=== PATIENT | female | born 1950 | race Caucasian/White ===

== ENCOUNTER 2019-08-25 10:40 | Outpatient (CLI) | payer MEDICARE, SELFPAY | END 2019-08-25 10:41 | disposition home or self-care (01) | PROVIDERS: PCP Family Medicine | DX: Z79.899 Other long term (current) drug therapy (principal) | CPT/HCPCS: 36415; 83036 ==

== ENCOUNTER 2020-05-05 09:51 | Outpatient (CLI) | payer MEDICARE, SELFPAY ==
[2020-05-05 10:13] LABS: Basophils Absolute Auto 0.1 K/mm3 (0.0-0.1); Basophils Percent Auto 1.1 % (0.2-1.2); Eosinophils Absolute Auto 0.4 K/mm3 (0-0.3); Eosinophils Percent Auto 8.4 % (0-4.4); Hematocrit 44.5 % (37.0-47.0); Hemoglobin 14.8 g/dL (12.0-15.0); Immature Granulocyte Absolute 0.02 K/mm3 (0.00-0.031); Immature Granulocyte Percent A 0.4 % (0-0.5); Lymphocytes Percent Auto 26.6 % (18.3-44.2); Mean Corpuscular HGB Conc 33.3 g/dl (32-36); Mean Corpuscular Hemoglobin 30.5 pg (26-34); Mean Corpuscular Volume 91.8 fl (80-100); Mean Platelet Volume 10.6 fl (7.4-10.4); Monocytes Absolute Auto 0.4 K/mm3 (0.1-0.6); Neutrophils Percent Auto 56.5 % (45.5-73.1); Platelet Count Result 291 k/mm3 (150-375); Red Blood Count 4.85 M/mm3 (4.2-5.4); Red Cell Distribution Width 13.3 % (11.5-14.5); White Blood Count 5.3 K/mm3 (4.5-10.0)
[2020-05-05 10:25] LABS: Hemoglobin A1C 5.6 % (<5.7)
[2020-05-05 10:27] LABS: Alanine Aminotransferase 26 U/L (4-35); Albumin Level 4.5 g/dL (3.5-5.1); Alkaline Phosphatase 65 U/L (38-126); Anion Gap 7 mmol/L (8-16); Aspartate Amino Transferase 33 U/L (14-36); Bilirubin,Total 0.6 mg/dL (0.2-1.3); Blood Urea Nitrogen 12 mg/dL (7-17); Calcium 9.3 mg/dL (8.4-10.2); Carbon Dioxide 31 mmol/L (22-30); Chloride 103 mmol/L (98-107); Estimated Glomerular Filt Rate > 60; Glucose 106 mg/dL (65-105); Potassium 4.6 mmol/L (3.4-5.0); Sodium 141 mmol/L (137-145)
[2020-05-05 11:00] LABS: Total Triiodothyronine (T3) 0.75 NG/ML (0.97-1.69)
[2020-05-05 11:13] LABS: Free T4 Free Thyroxine 0.67 ng/mL (0.78-2.19)
== END 2020-05-05 09:52 | disposition home or self-care (01) ==
LOC: ANHLAB 09:53
PROVIDERS: PCP Family Medicine; Visit Provider Physician Assistant
DX: E03.9 Hypothyroidism, unspecified (principal); F31.12 Bipolar disorder, current episode manic without psychotic features, moderate; R73.01 Impaired fasting glucose
CPT/HCPCS: 36415; 80053; 83036; 84439; 84443; 84480; 85025

== ENCOUNTER 2020-07-31 07:28 | Outpatient (CLI) | payer MEDICARE, SELFPAY ==
[2020-07-31 08:11] LABS: Anion Gap 4 mmol/L (8-16); Blood Urea Nitrogen 16 mg/dL (7-17); Calcium 8.6 mg/dL (8.4-10.2); Carbon Dioxide 33 mmol/L (22-30); Chloride 103 mmol/L (98-107); Estimated Glomerular Filt Rate > 60; Glucose 98 mg/dL (65-105); Potassium 4.2 mmol/L (3.4-5.0); Sodium 140 mmol/L (137-145)
[2020-07-31 10:52] LABS: Total Triiodothyronine (T3) 0.82 NG/ML (0.97-1.69)
== END 2020-07-31 07:29 | disposition home or self-care (01) ==
PROVIDERS: PCP Family Medicine; Visit Provider Physician Assistant
DX: E03.9 Hypothyroidism, unspecified (principal); F31.12 Bipolar disorder, current episode manic without psychotic features, moderate
CPT/HCPCS: 36415; 80048; 84439; 84443; 84480

== ENCOUNTER 2021-01-08 19:31 | Emergency (ER) | payer MEDICARE, SELFPAY ==
--- NOTE | ~2021-01-08 | XR_ITS ---
EXAMINATION: XR forearm RT 2V DATE: 01/08/2021 21:16 INDICATION: Right elbow swelling. Fall. TECHNIQUE: 2 views of right forearm were obtained. COMPARISON: None. FINDINGS: Bone alignment is normal. No fracture. The elbow joint space is normal. There is no elbow j oint effusion. IMPRESSION: 1. No fracture. Reviewed, dictated and finalized at location A. IMPRESSION: 1. No fracture.
--- NOTE | ~2021-01-08 | XR_ITS ---
EXAMINATION: XR shoulder RT min 2V DATE: 01/08/2021 20:11 INDICATION: Right clavicle injury. TECHNIQUE: 4 views of right clavicle were obtained. COMPARISON: None. FINDINGS: There is a comminuted fracture involving the middle third of right clavicle. The main dista l fracture fragment demonstrates 3 mm inferior displacement and one half shaft width anterior displac ement. Coracoclavicular interval is normal. There is mild osteoarthritis of the acromioclavicular charisma nt. The lungs demonstrate chronic interstitial lung disease. IMPRESSION: 1. Comminuted fracture involving the middle third of right clavicle. Reviewed, dictated and finalized at location A.
--- NOTE | ~2021-01-08 | CT_ITS ---
EXAMINATION: CT brain wo con DATE: 01/08/2021 21:23 INDICATION: Head injury. TECHNIQUE: Computed tomography (CT) of the head was performed without intravenous contrast. The mA wa s adjusted according to patient size. Iterative reconstruction technique was employed. The dose-lengt h product was 605.33 mGy-cm. COMPARISON: Head CT 08/21/2012, brain MRI 06/23/2016 FINDINGS: There are scattered areas of low attenuation in the cerebral white matter. There is no intr acranial hemorrhage, acute infarction, or abnormal intracranial mass lesion. The ventricles are dorita l in size. The orbits are normal. There is a right frontal lateral scalp hematoma. There is mild muco dereje thickening in the paranasal sinuses. There is a small left mastoid effusion. IMPRESSION: 1. Worsened mild nonspecific cerebral white matter disease, which likely represents chronic small ves eloy ischemic disease. Reviewed, dictated and finalized at location A. IMPRESSION: 1. Worsened mild nonspecific cerebral white matter disease, which likely repres ents chronic small vessel ischemic disease.
--- NOTE | ~2021-01-08 | CT_ITS ---
EXAMINATION: CT cervical spine wo con DATE: 01/08/2021 21:24 INDICATION: Head injury. TECHNIQUE: Computed tomography (CT) of the cervical spine was performed without intravenous contrast. Automated exposure control and iterative reconstruction technique were employed. The dose-length pro duct was 421.69 mGy-cm. COMPARISON: None FINDINGS: The visualized portions of the lung apices demonstrate chronic interstitial lung disease. P artially visualized is a comminuted fracture of right clavicle. The cervical spine demonstrates dorita l bone alignment. Vertebral body heights are normal. There is mildly decreased disc height at C3-C4 a nd C4-C5 and moderately decreased disc height at C5-C6 and C6-C7. The following disc levels are speci fically discussed: C2-C3: There is no uncovertebral joint osteoarthritis. There is mild bilateral facet joint osteoarthr itis. There is no neural foraminal stenosis. There is no central canal stenosis. C3-C4: There is mild right and severe left uncovertebral joint osteoarthritis. There is mild bilatera l facet joint osteoarthritis. There is mild left neural foraminal stenosis. There is mild central can al stenosis. C4-C5: There is mild right and moderate left uncovertebral joint osteoarthritis. There is mild bilate ral facet joint osteoarthritis. There is mild bilateral neural foraminal stenosis. There is mild cent ral canal stenosis. C5-C6: There is severe bilateral uncovertebral joint osteoarthritis. There is mild bilateral facet ginny int osteoarthritis. There is mild bilateral neural foraminal stenosis. There is mild central canal st enosis. C6-C7: There is mild right and severe left uncovertebral joint osteoarthritis. There is moderate righ t and mild left facet joint osteoarthritis. There is mild right and moderate left neural foraminal st enosis. There is mild central canal stenosis. C7-T1: There is no uncovertebral joint osteoarthritis. There is moderate right and severe left facet joint osteoarthritis. There is mild left neural foraminal stenosis. There is no central canal stenosi s. IMPRESSION: 1. Comminuted fracture of right clavicle. 2. Moderate cervical spondylosis. Reviewed, dictated and finalized at location A.
[2021-01-08 19:35] VITALS: BP 152/78; PULSE 57; RESP 20; TEMP 36.7; O2SAT 100
--- NOTE | 2021-01-08 19:45 | PC.NURSE ---
patient refused iv access
[2021-01-08] MEDS: ACETAMINOPHEN 500 MG TABLET 1000 MG PO (21:22)
--- NOTE | 2021-01-08 21:55 | ED.FALL ---
HPI - Fall General Chief Complaint: Fall Stated Complaint: glf on ground 1 hour, rt clavicle pain Time Seen by Provider: 01/08/21 19:52 Source: patient Mode of arrival: ambulatory Limitations: no limitations History of Present Illness HPI Narrative: Patient is a 70-year-old female who presents after fall. Patient complaining of right shoulder pain. Patient reports having multiple alcoholic beverages p.m. She denies hitting head. Patient denies neck pain. Patient reports tripping and falling on concrete patio while checking pool. Patient denies other complaints. Patient's daughter reports fall was unwitnessed. complaint: fall Related Data Home Medications Medication Instructions Recorded Confirmed aspirin 81 mg tablet,delayed 81 mg PO DAILY 06/21/19 08/08/20 release Allergies Allergy/AdvReac Type Severity Reaction Status Date / Time NKDA Allergy unknown Uncoded 08/08/20 07:56 Review of Systems Review of Systems: Narrative: CONSTITUTIONAL: Denies fever, chills, or sweats. EYES: Denies visual changes, redness, or discharge. ENT: Denies rhinorrhea, congestion, sore throat, or otalgia. CARDIOVASCULAR: Denies chest pain, palpitations, or edema. RESPIRATORY: Denies cough or dyspnea. GASTROINTESTINAL: Denies abdominal pain, nausea, vomiting, or diarrhea. GENITOURINARY: Denies dysuria or hematuria. SKIN: Denies rash or itching. MUSCULOSKELETAL: Reports right shoulder pain. NEUROLOGIC: Denies headache, numbness, dizziness, or weakness. PSYCHIATRIC: Denies anxiety or depression. [facility] Past Medical History Medical History Bipolar 1 disorder with moderate emma BRCA gene mutation positive Gastric polyps HH (hiatus hernia) Hypothyroidism (acquired) Reflux esophagitis Scleroderma of esophagus Surgical History Surgical History History of esophagogastroduodenoscopy (EGD) Social History Social History Social History: Smoking status: Never smoker Second hand tobacco smoke exposure: No Alcohol intake: current Drinks per week: 5 Substance use: never Substance use type: does not use Gender identity (if verbalized by the patient): Female Comments At the time of signature, I have reviewed and agree with nursing past medical, surgical, social, and family history unless otherwise noted. Please see nursing chart for further information. There is no relevant family history pertinent to the presenting complaint. Exam Narrative: Exam Narrative: GENERAL: Well-appearing, well-nourished, and in no acute distress. HEAD: Normocephalic, atraumatic. EYES: EOMI. No redness or drainage. Conjunctiva are normal. ENT: Mucous membranes pink and moist. NECK: AROM. Supple. No lymphadenopathy. CHEST: No respiratory distress. Clear to auscultation. HEART: Regular rate and rhythm. No murmur appreciated. Normal peripheral pulses. GI: Soft, nontender without rebound, or guarding. No distention. MUSCULOSKELETAL: No bony tenderness. EXTREMITIES: Tenderness with palpation to right shoulder, deformity noted SKIN: Edema and ecchymosis to right forearm NEURO: No focal deficits. Alert and oriented x3. Gait steady. PSYCH: Normal affect. No signs of depression or anxiety. Course Vital Signs Vital signs: Vital Signs Temperature 36.7 C 01/08/21 19:35 Pulse Rate 57 L 01/08/21 19:35 Respiratory Rate 20 01/08/21 19:35 Blood Pressure 152/78 H 01/08/21 19:35 Pulse Oximetry 100 01/08/21 19:35 Temperature 36.7 C 01/08/21 19:35 Pulse Rate 57 L 01/08/21 19:35 Respiratory Rate 20 01/08/21 19:35 Blood Pressure 152/78 H 01/08/21 19:35 Pulse Oximetry 100 01/08/21 19:35 Reviewed-patient is informed that they may have pre-hypertension or hypertension based on a blood pressure reading. I recommend the patient call the primar
[2021-01-08] MEDS: KETOROLAC 30 MG/ML VIAL (*BKC) IM (23:23)
[2021-01-08 23:30] VITALS: BP 122/68; PULSE 70; RESP 18; O2SAT 99
== END 2021-01-08 23:31 | disposition home or self-care (01) ==
PROVIDERS: Emergency Provider Nurse Practitioner; PCP Internal Medicine
DX: S42.021A Displaced fracture of shaft of right clavicle, initial encounter for closed fracture (principal); E03.9 Hypothyroidism, unspecified; K21.00 Gastro-esophageal reflux disease with esophagitis, without bleeding; M34.89 Other systemic sclerosis; F31.9 Bipolar disorder, unspecified; Z79.82 Long term (current) use of aspirin; M47.812 Spondylosis without myelopathy or radiculopathy, cervical region; R90.82 White matter disease, unspecified; W01.0XXA Fall on same level from slipping, tripping and stumbling without subsequent striking against object, initial encounter
CPT/HCPCS: 70450; 72125; 73030; 73090; 96372; 99284; A4565; A9270; J1885

== ENCOUNTER → 2022-04-29 09:48 | Outpatient (CLI) | payer MEDICARE, SELFPAY ==
--- NOTE | ~2022-04-29 | DEXA_ITS ---
Bone Density Report Name: FRANKIE TYLER Age: 72 Sex: Female Ethnicity: White Date of : 1950 Indication: postmenopausal; screening for osteoporosis; history of glucocorticoids; Referring Provider: RuthAaliyah Study: Bone densitometry was performed. Exam Date: April 29, 2022 Accession number: [id number] Bone Density: Region BMD T-score Z-score Classification AP Spine (L1-L4) 0.860 -1.7 0.5 Osteopenia Femoral Neck (Left) 0.614 -2.1 -0.3 Osteopenia Total Hip (Left) 0.779 -1.3 0.2 Osteopenia Femoral Neck (Right) 0.630 -2.0 -0.1 Osteopenia Total Hip (Right) 0.728 -1.8 -0.2 Osteopenia Total Hip Mean 0.754 -1.6 0.0 Osteopenia World Health Organization criteria for BMD impression classify patients as: Normal (T-score at or above -1.0), Osteopenia (T-score between -1.0 and -2.5), or Osteoporosis (T-score at or below -2.5). 10-year Fracture Risk(1): Major Osteoporotic Fracture 19% Hip Fracture 4.5% Reported Risk Factors: [place] (), Neck BMD=0.614, BMI=28.0, glucocorticoids (1) FRAX(R) Version 3.08. Fracture probability calculated for an untreated patient. Fracture probability may be lower if the patient has received treatment. Clinical Information Provided by Patient: Has taken Glucocorticoids Has used the following medications: Vitamin D Patient maximum height was 63.75 Menopause Age: 50 Drinks caffeinated beverages Onset of menses at age 14 Number of children 2 Impression: The patient has low bone mass, based on the Left Femoral Neck T-score. The patient has an estimated ten-year risk of hip fracture of 4.5% and an estimated ten-year risk of major fracture of 19%, based on the WHO FRAX algorithm. The patient has risk factors, including: history of glucocorticoid therapy. Discussion: BONE DENSITY IS LOW AT ONE OR MORE SKELETAL SITES. THE PATIENT'S BMD AND CLINICAL RISK FACTORS CONTRIBUTE TO THIS PATIENT'S INCREASED RISK OF FRACTURE. This patient's lowest T-score is low at one or more skeletal sites. It meets the World Health Organization's (WHO) criteria for ?low bone mass? (T-score between -1.0 and -2.5). The patient's 10-year risk of hip fracture as calculated by FRAX exceeds the threshold where pharmacological therapy is recommended by the National Osteoporosis Foundation (NOF). However, all treatment decisions require clinical judgment and consideration of individual patient factors, including patient preferences, comorbidities, previous drug use, risk factors not captured in the FRAX model (e.g., frailty, falls, vitamin D deficiency, increased bone turnover, interval significant decline in bone density) and possible under or overestimation of fracture risk by FRAX. The patient should follow a healthful lifestyle (good nutrition with adequate calcium and vitamin D, and appr
== END ==
PROVIDERS: PCP Internal Medicine; Visit Provider Internal Medicine
DX: Z78.0 Asymptomatic menopausal state (principal); M85.89 Other specified disorders of bone density and structure, multiple sites
CPT/HCPCS: 77080

== ENCOUNTER 2024-08-28 10:01 | Emergency (ER) | payer MEDICARE, SELFPAY ==
[2024-08-28] VITALS (11 sets, daily range): BP systolic 101–132; BP diastolic 55–78; PULSE 64–77; RESP 16; TEMP 36.4–36.9; O2SAT 94–100
--- NOTE | ~2024-08-28 | CT_ITS ---
EXAMINATION: CT cervical spine wo con DATE: 08/28/2024 10:40 INDICATION: Head injury. Fall. TECHNIQUE: Computed tomography (CT) of the cervical spine was performed without intravenous contrast. Automated exposure control and iterative reconstruction technique were employed. The dose-length pro duct was 178.31 mGy-cm. COMPARISON: CT cervical spine 01/08/2021 FINDINGS: There is 7 degrees dextrocurvature of cervicothoracic spine. Vertebral body heights are nor mal. There is moderately decreased disc height at C3-C4 and C4-C5 and severely decreased disc height at C5-C6 and C6-C7. The following disc levels are specifically discussed: C2-C3: There is no uncovertebral joint osteoarthritis. There is mild right and moderate left facet ginny int osteoarthritis. There is no neural foraminal stenosis. There is no central canal stenosis. C3-C4: There is mild right and severe left uncovertebral joint osteoarthritis. There is moderate righ t and severe left facet joint osteoarthritis. There is mild left neural foraminal stenosis. There is mild central canal stenosis. C4-C5: There is mild right and severe left uncovertebral joint osteoarthritis. There is mild bilatera l facet joint osteoarthritis. There is mild left neural foraminal stenosis. There is mild central can al stenosis. C5-C6: There is severe bilateral uncovertebral joint osteoarthritis. There is mild bilateral facet ginny int osteoarthritis. There is mild bilateral neural foraminal stenosis. There is mild central canal st enosis. C6-C7: There is mild right and severe left uncovertebral joint osteoarthritis. There is mild bilatera l facet joint osteoarthritis. There is mild left neural foraminal stenosis. There is mild central can al stenosis. C7-T1: There is no uncovertebral joint osteoarthritis. There is severe bilateral facet joint osteoart hritis. There is mild left neural foraminal stenosis. There is no central canal stenosis. IMPRESSION: 1. No fracture. 2. Severe cervical spondylosis. Reviewed, dictated and finalized at location A. SIZER
--- NOTE | ~2024-08-28 | CT_ITS ---
EXAMINATION: CT brain wo con DATE: 08/28/2024 10:40 INDICATION: Head injury. Fall. TECHNIQUE: Computed tomography (CT) of the head was performed without intravenous contrast. The mA wa s adjusted according to patient size. Iterative reconstruction technique was employed. The dose-lengt h product was 605.33 mGy-cm. COMPARISON: Head CT 01/08/2021 FINDINGS: There are scattered areas of low attenuation in the cerebral white matter. There is no intr acranial hemorrhage, acute infarction, or abnormal intracranial mass lesion. The ventricles are dorita l in size. The orbits are normal. There is mucosal thickening in the paranasal sinuses. There are sma ll bilateral mastoid effusions. There is posterior scalp soft tissue swelling. IMPRESSION: 1. Moderate nonspecific cerebral white matter disease, which likely represents chronic small vessel i schemic disease. Reviewed, dictated and finalized at location A. ULA MIXER IMPRESSION: 1. Moderate nonspecific cerebral white matter disease, which likely represents chronic small vessel ischemic disease.
--- OUTSIDE RECORDS SUMMARY | 2024-08-28 10:02 | XMS_ITS | Clinical Summary ---
Author Organization [facility] al Address [address] [place] [address] Care Team Providers Care Power Plant Engineer Name Role Phone Aaliyah Miranda MD Unavailable Aaliyah Miranda MD Primary Care Provider [phone] Allergies No known active allergies Medications buPROPion XL (WELLBUTRIN XL) 150 mg 24 hr tablet Take 1 tablet (150 mg total) by mouth special education classroom aide before breakfast 1 Active atorvastatin (LIPITOR) 20 mg tablet 1 Active cyanocobalamin (Vitamin B-12) 1,000 mcg tablet Take 1 tablet (1,000 mcg total) by mouth daily 1 Active cholecalciferol (VITAMIN D-3) 5,000 unit capsule Take 5,000 mg by mouth daily 1 Active metFORMIN (GLUCOPHAGE) 500 mg tablet 2 Active escitalopram (LEXAPRO) 20 mg tablet Take 1 tablet (20 mg total) by mouth daily 2 Active levothyroxine (SYNTHROID) 50 mcg tablet 2 Active calcium carbonate (OS-DIDI) 1,500 mg (600 mg elemental) tablet Take 1 tablet (1,500 mg total) by mouth daily 2 Active omeprazole (PriLOSEC) 40 mg capsule TAKE 1 CAPSULE(40 MG) BY MOUTH TWICE DAILY BEFORE BREAKFAST AND DINNER 180 capsule 2 3 Active oxyBUTYnin XL (DITROPAN-XL) 5 mg 24 hr tablet Take 1 tablet (5 mg total) by mouth daily 4 Active folic acid (FOLVITE) 1 mg tablet 4 Active Active Problems Problem Noted Date Diagnosed Date Complete uterovaginal prolapse 08/12/2024 Stress incontinence, female 08/12/2024 History of colon polyps 05/27/2022 Overview (05/27/2022): Added automatically from request for surgery [id number] Alcohol dependence in remission ([facility]) 2021 Encounter for screening colonoscopy 08/14/2021 Overview (08/14/2021): Added automatically from request for surgery [id number] Prediabetes 08/03/2021 JOHN (generalized anxiety disorder) 06/04/2021 Moderate episode of recurrent major depressive d isorder 06/04/2021 Acquired hypothyroidism 09/20/2020 Chronic low back pain with sciatica 09/20/2020 Mixed stress and urge urinary incontinence 09/20 Osteoarthritis of both knees 09/20/2020 Gastroesophageal reflux disease with esophagitis 12/29/2018 Esophageal dysphagia 12/29/2018 Fundic gland polyposis of stomach 12/29/2018 Fundic gland polyps of stomach, benign 9 Overview (12/29/2018): Added automatically from request for surgery [id number] BRCA2 gene mutation positive 10/23/2018 Knee pain 10/16/2017 At risk for breast cancer 06/30/2017 Atherosclerosis of coronary artery 04/26/2017 Paroxysmal atrial fibrillation (CMS/HCC) 017 Dyspnea on exertion 12/28/2016 Gene mutation 04/13/2015 Telangiectasia 02/17/2014 Interstitial lung disease (CMS/HCC) 10/27/2013 Carotid bruit 05/18/2013 Palpitations 05/18/2013 Mixed hyperlipidemia 06/21/2011 Pulmonary hypertension 06/10/2011 Systemic sclerosis 11/17/2010 Encounters Date Type Department Care Team Description 08/20/2024 3:34 PM ELECTRIC TRUCKER - 08/20/2024 11:59 PM ELECTRIC TRUCKER Hospital Encounter [address] [address] Discharge Disposition: Discharge to home or self care 08/20/2024 1:15 PM ELECTRIC TRUCKER Office Visit [facility] [address] [place] [address] Jah Noguera MD Uterine prolapse (Primary Dx); Pre-op exam 08/20/2024 12:45 PM ELECTRIC TRUCKER Ancillary Procedure [facility] [address] [place] [address] Preop examination 07/08/2024 Orders Only [facility] [address], [place] [address] Jah Noguera MD Preop examination (Primary Dx) 07/08/2024 Telephone [facility] [address] [place] [address] Danielle Fulton, junior high school principal Alexander 09/07/24 12pm RLSH/BSO 07/06/2024 Telephone [facility] [address] [place] [address] Karen Ríos Surgery Alexander from Last 3 Months Immunizations Name Administration Dates Next Due Influenza, Quadrivalent, Spl it, Intramuscular 06/17/2016,06/29/2015 Influenza, Trivalent, High D ose, Split, Preservative Free, Intramuscular 05/29/2018,04/25/2017 Influenza, Trivalent, IM (MDV) 04/29/2014 Influenza, Unspecified 04/24/2021,03/30/2020,03/2018 Pneumococcal Polysaccharide PPV23 03/30/2020 Tdap 01/24/2014 Surgical History Surgery Date Site/Laterality Comments OVARIAN CYSTECTOMY Ovarian Cystectomy - Dermoid (Added by TW Conv) UPPER GASTROINTESTINAL ENDOSCOPY Medical History Medical History Date Comments Anxiety disorder Anxiety - (Adde d by TW Conv) Personal history of other me ntal and behavioral disorders History of depression - (Add ed by TW Conv) Personal history of other di seases of the circulatory system History of atrial fibrillati on - (Added by TW Conv) Personal history of other me ntal and behavioral disorders History of mental disorder - (Added by TW Conv) Personal history of other di seases of the digestive system History of gastric ulcer - ( Added by TW Conv) Personal history of other di seases of the digestive system History of gastroesophageal reflux (GERD) - (Added by TW Conv) Personal history of other en docrine, nutritional and metabolic disease History of underacti ve thyroid - (Added by TW Conv) Personal history of other di seases of the musculoskeletal system and connective tissue History of arthritis - (Adde d by TW Conv) GERD (gastroesophageal reflux disease) Colon polyp Dysphagia Atrial fibrillation (CMS/HCC) (HCC) Hyperlipidemia Scleroderma involving lung ( CMS/HCC) (HCC) Hypothyroidism Prediabetes Depression Ovarian cyst BRCA2 gene mutation positive Family History Medical History Relation Name Comments Diabetes Brother Family history of diabetes mellitus - (Added by TW Conv) Other Father Family history of sepsis - (Added by TW Conv) Colon cancer Father's Sister 1 Malignant Neoplasm, Colon - (Added by TW Conv) Lupus Father's Sister 2 Hypertension Mother Hypertension - (Added by TW Conv)/Family history of hypertension - (Added by TW Conv) Lung cancer Mother Malignant Lung Neoplasm - (Added by TW Conv)/Family history of lung cancer - (Added by TW Conv) Skin cancer Mother Skin Cancer - ( Added by TW Conv) Diabetes Other 1 Diabetes Mellit - (Added by TW Conv) Heart disease Other 2 Heart Disease - (Added by TW Conv) Colon cancer Other 3 Malignant Neopl asm, Colon - (Added by TW Conv) Endometrial cancer Other 4 Endometri al cancer - Niece, BRCA2 mutation (Added by TW Conv) Kidney cancer Other 5 Family history of malignant neoplasm of kidney - Niece, BRCA2 mutation (Added by TW Conv) Hypertension Sister 1 Family history of hypertension - (Added by TW Conv) Heart attack Sister 2 Family history of myocardial infarction - (Added by TW Conv) Diabetes Sister 3 Family history of diabetes mellitus - (Added by TW Conv) Relation Name Status Comments Brother Father Father's Sister 1 Father's Sister 2 Mother Other 1 Other 2 Other 3 Other 4 Other 5 Sister 1 Sister 2 Sister 3 Social History Tobacco Use Types Packs/Day Years Used Date Smoking Tobacco: Never Smokeless Tobacco: Never Tobacco Cessation:Counseling Given: Not Answered AUDIT-C Answer Date Recorded Q1: How often do you have a drink containing alc ohol? Monthly or less 08/20/2024 Q2: How many drinks containi ng alcohol do you have on a typical day when you are drinking? 1 or 2 08/20/2024 Q3: How often do you have si x or more drinks on one occasion? Never 08/20/2024 Personal Safety Answer Date Recorded Have you ever been in or are you currently in a harmful physical or emotional relationship or is someone making you feel afraid or unsafe? Denies 01/29/2024 Comments No Sex and Gender Information Value Date Recorded Sex Assigned at Not on file Legal Sex Female 7:32 PM ELECTRIC TRUCKER Gender Identity Not on file Sexual Orientation Not on file Obstetrics History Para Term AB IAB SAB Ectopic Multiple Livin g Live Births 2 2 2 2 2 Date Outcome GA Total Labor Labor/2nd/3rd Weight Sex Type Anes PTL Becky A1 A5 Name Clin 1970 Term M Vaginal Livin g Casa 1975 Term F Vaginal Livin g Ira Last Filed Vital Signs Vital Sign Reading Time Taken Comments Blood Pressure 113/76 05/16/2024 12:32 PM CDT Pulse 77 05/16/2024 12:32 PM CDT Temperature 36.9 C (98.5 F) 05/16/2024 12:32 PM CDT Respiratory Rate 20 05/16/2024 12:32 PM CDT Oxygen Saturation 99% 05/16/2024 12:32 PM CDT Inhaled Oxygen Concentration - - Weight 63.5 kg (140 lb) 08/20/2024 1:09 PM ELECTRIC TRUCKER Height 162.6 cm (5' 4 ) 08/20/2024 1:09 PM ELECTRIC TRUCKER Body Mass Index 24.03 08/20/2024 1:09 PM ELECTRIC TRUCKER Plan of Treatment Upcoming Encounters Date Type Department Care Team (Latest Contact Info) Description 09/07/2024 12:00 PM ELECTRIC TRUCKER Hospital Encounter [facility] Operating Room [address] [place] [id number] [place] [address] [place] [address] 09/07/2024 12:00 PM ELECTRIC TRUCKER - 09/07/2024 3:30 PM ELECTRIC TRUCKER Surgery [facility] Operating Room [address] [place] [id number] [place] [address] [place] [address] Hysterectomy with Poornima Robotic Assisted Sacralcolpopexy, Urethral Sling Insertion Scheduled Procedures Name Priority Associated Diagnoses Date/Ti me XI SACRALCOLPOPEXY - ROBOTIC ASSISTED Complete uterovaginal prolapse Stress incontinence, female 09/07/2024 12:00 PM ELECTRIC TRUCKER SUPRACERVICAL HYSTERECTOMY - ROBOTIC ASSISTED Complete uterovaginal prolapse Stress incontinence, female 09/07/2024 12:00 PM ELECTRIC TRUCKER Health Maintenance Due Date Last Done Comments Depression Screening 1950 Hepatitis C Screening 1950 Hepatitis B Screening 1969 Zoster Vaccine (1 of 2) 2001 Well Visit 65+ 02/04/2016 DTaP/Tdap/Td Vaccine (2 - Td or Tdap) 01/25/2024 01/24/2014 Covid-19 Vaccine (4 - 2023-2 5 season) 2024 11/08/2021, 06/08/2021, 09/01/2020 Osteoporosis Screening-Bone Density Scan 04/29/2024 04/29/2022 Fall Risk Assessment 01/28/2025 01/29/2024 Breast Cancer Screening-Mammogram 02/19/2025 02/20/2024, 06/08/2021, 02/02/2019, Additional history exists Colon Cancer Screening-Colonoscopy 01/10/2033 01/10/2023, 01/17/2014 Pneumococcal vaccine 65+ Completed 04/17/2022, 03/21 Colon Cancer Screening-CT Colonography Discontinued 01/10/2023, 01/17/2014 Colon Cancer Screening-DNA Stool Discontinued 01/11/20, 01/17/2014 Colon Cancer Screening-FIT Discontinued 01/10/2023, Colon Cancer Screening-Sigmoidoscopy Discontinued 01/10/2023, 01/17/2014 Influenza Vaccine Completed 05/12/2024, , 03/30/2020, Additional history exists Procedures Procedure Name Priority Date/Time Associated Diagnosis Comments SURGICAL PATHOLOGY Routine 08/20/2024 1: 49 PM ELECTRIC TRUCKER CO ENDOMETRIAL BX W/WO ENDOCERVIX BX W/O DILAT SPX Routine 08/20/2024 1:15 PM ELECTRIC TRUCKER Uterine prolapse US PELVIS COMPLETE Routine 08/20/2024 11 :56 AM ELECTRIC TRUCKER Preop examination SCREENING MAMMOGRAM BILATERAL W TYRELL Schedule Routine, Read Routine (OP Routine) 02/20/2024 11:02 AM CDT BRCA2 gene mutation positive Encounter for screening mammogram for malignant neoplasm of breast COLONOSCOPY 01/10/2023 3:46 PM CDT from Last 3 Months or Most Recently Relevant to Health Maintenance Results * Surgical pathology (08/20/2024 1:49 PM ELECTRIC TRUCKER) Endometrial biopsy 1:49 PM ELECTRIC TRUCKER 08/20/2024 4:02 PM ELECTRIC TRUCKER Narrative 08/23/2024 9:31 AM ELECTRIC TRUCKER [address] [address] Tele: Sumaya Schneider MD - Senior Sustainability Advisor Note to Patients: This report may contain a detailed description of human tissue sent by a health care provider to the laboratory for pathologic evaluation. The content of this report is essential for diagnosis and may provide important critical findings. This information may be unfamiliar to patients to review without a medical professional present. It is advised that the patient review this report in the presence of a health care provider who can answer questions and explain the details. SURGICAL PATHOLOGY REPORT Patient Name: BRIANNA TYLER Address: [address] [place], [place] [id number] Gender: F : 1950 (Age: 74) Service: Location: , [facility] #: [id number] Patient Type: [facility] SPECIMEN Taken: 08/20/2024 Received 08/20/2024 Reported: 08/23/2024 Physician(s): Jah Noguera M.D. DIAGNOSIS: Uterus, endometrium, biopsy: - Scant strips of inactive endometrium with ciliated metaplasia [facility]/08/23/2024 09:31 Examining Pathologist: Linnette Quiñones M.D. Report Reviewed and Electronically Signed By Linnette Quiñones M.D. SPECIMEN TYPE: A: EMBX CLINICAL IMPRESSION AND HISTORY: Uterine prolapse. Preoperative exam GROSS DESCRIPTION: Received in formalin in a single container with the patient's name, BRIANNA TYLER labeled EMB X and contains less than 1 cc of clear mucoid material. Due to the color and size of the specimen, eosin is used. The specimen is filtered and submitted entirely in cassette A1. [facility] MICROSCOPIC DESCRIPTION: Microscopic examination supports the above captioned diagnosis. There is no hyperplasia or malignancy. Clerical Data Follows A; [id number] REPORT IMAGES AND/OR SCANNED DOCUMENTS ONLY VIEWABLE IN PDF FORMAT The immunohistochemical test(s) cited in this report, if any, was developed and its performance characteristics determined by [facility] Pathology Department. It has not been cleared or approved by the U.S. Food and Drug Administration. The FDA has determined that such clearance or approval is not necessary. This test is used for clinical purposes. It should not be regarded as investigational or for research. [facility] is certified under the Clinical Laboratory Improvement Amendments of 1988 (CLIA) as qualified to perform high complexity testing. Immunostains were performed on formalin-fixed paraffin embedded tissue using a polymer diaminobenzidine chromogen detection system. Antibodies used may include clone SP1 (rabbit monoclonal, estrogen receptor), clone 1E2 (rabbit monoclonal progesterone receptor), Ki-67 (rabbit monoclonal, 30-9), CD117 (rabbit polyclonal, c-kit), and anti-Her-2/anahi (4B5) (rabbit monoclonal primary antibody). In the event that immunohistochemistry or special stains have been performed, attending physician has confirmed appropriateness of controls. Frozen section, operating room consultation, gross examination and dissection, and case sign out may have been performed in part or completely in the following laboratories: [facility], [facility], [place], [place] [address] [place] [address]. Jah Noguera MD LAB PATHOLOGY ORDERABLES Final Result * CO ENDOMETRIAL BX W/WO ENDOCERVIX BX W/O DILAT SPX (08/20/2024 1:15 PM ELECTRIC TRUCKER) Narrative Jah Noguera MD - 08/20/2024 1:15 PM ELECTRIC TRUCKER aJh Noguera MD 08/20/2024 1:59 PM Endometrial Biopsy Only Performed by: Jah Noguera MD Authorized by: Jah Noguera MD Consent Given by: Patient Timeout: prior to procedure the correct patient, procedure, and site was verified Verbal consent obtained: Yes Risks, alternatives, and patient questions discussed: Yes Preparation: Patient was prepped using a clean technique Procedure: Procedure: endometrial biopsy with Pipelle A bivalve speculum was placed in the vagina: yes Cervix cleaned and prepped: yes Specimen collected: specimen collected and sent to pathology Patient tolerance: Patient tolerated the procedure well with no immediate complications Findings: Cervix: normal Jah Noguera MD IN CLINIC/BEDSIDE ORDERAB LES Final Result * US Pelvis Complete (08/20/2024 11:56 AM ELECTRIC TRUCKER) Endometrial Thickness 1.4 mm&millime ters VIEWPOINT Anatomical Region Laterality Modality Pelvis N/A Ultrasound 08/20/2024 12:0 1 PM ELECTRIC TRUCKER Impressions 08/20/2024 3:44 PM ELECTRIC TRUCKER Anteverted uterus, volume = 52.3 cm ; EM thickness = 1.4 mm Postmenopausal ovaries appear normal x 2 No free fluid Narrative Procedure Note Jah Noguera MD - 08/20/2024 IMPRESSION: Anteverted uterus, volume = 52.3 cm ; EM thickness = 1.4 mm Postmenopausal ovaries appear normal x 2 No free fluid Jah Noguera MD IMG US PROCEDURES Final R esult * Screening Mammogram Bilateral W Tyrell (02/20/2024 11:02 AM CDT) Anatomical Region Laterality Modality Breast Bilateral Mammography Narrative 02/20/2024 1:06 PM CDT Mammogram Technique: Bilateral Digital Breast Tomosynthesis, Bilateral C-view 2D Screening mammogram. Views obtained: bilateral craniocaudal and bilateral mediolateral oblique. Computer Aided Detection was performed. Mammogram Findings: The present examination has been compared to prior imaging studies performed at [facility] on 02/02/2019, 06/08/2021 and 12/20/2021. The breasts are almost entirely fatty. There is no suspicious abnormality in either breast. Impression: There is no mammographic evidence of malignancy. Annual screening mammography is recommended. OVERALL FINAL ASSESSMENT: BI-RADS CATEGORY 1: Negative. Procedure Note Monica Cosme MD - 02/20/2024 Mammogram Technique: Bilateral Digital Breast Tomosynthesis, Bilateral C-view 2D Screening mammogram. Views obtained: bilateral craniocaudal and bilateral mediolateral oblique. Computer Aided Detection was performed. Mammogram Findings: The present examination has been compared to prior imaging studies performed at [facility] on 02/02/2019, 06/08/2021 and 12/20/2021. The breasts are almost entirely fatty. There is no suspicious abnormality in either breast. Impression: There is no mammographic evidence of malignancy. Annual screening mammography is recommended. OVERALL FINAL ASSESSMENT: BI-RADS CATEGORY 1: Negative. Cynthia Guevara NP IMG MAMMO PROCEDURES Final Result * COLONOSCOPY (01/10/2023 3:46 PM CDT) Anatomical Region Laterality Modality Other Narrative Procedure Note Chito Hampton MD - 01/10/2023 3:46 PM CDT [facility] Patient Name: Brianna Tyler Procedure Date: 01/10/2023 3:46 PM Date of : 1950 Admit Type: Outpatient Age: 72 Gender: Female Attending MD: Chito Hampton M.D. Room: [facility] ENDOSCOPY ROOM 9 Note Status: Finalized Procedure: Colonoscopy Indications: Surveillance: Personal history of adenomatouspolyps on last colonoscopy > 5 years ago Referring MD: Aaliyah Miranda M.D. Providers: Chito Hampton M.D. Medicines: Monitored Anesthesia Care Complications: No immediate complications. Estimated blood loss:None. Estimated Blood Loss: Estimated blood loss: none. Procedure: Pre-Anesthesia Assessment: - The risks and benefits of the procedure and the sedation options and risks were discussed with the patient. All questions were answered and informed consent was obtained. - Immediately prior to administration ofmedications, the patient was re-assessed for adequacy to receive sedatives. - The anesthesia plan was to use monitoredanesthesia care (MAC). The benefits, risks and alternatives of theprocedure and sedation were discussed and informed consentwas obtained. All questions were answered. Please referto the signed informed consent document in the medical record. The scope was passed under direct vision.The [facility] [id number] endoscope was introducedthrough the anus and advanced to the cecum, identified by appendiceal orifice and ileocecal valve. The colonoscopy was performed without difficulty. The patient tolerated the procedure well. The qualityof the bowel preparation was evaluated using the BBPS ([place] Bowel Preparation Scale) with scores of:Right Colon = 2 (minor amount of residual staining, small fragments of stool and/or opaque liquid, but mucosa seen well), Transverse Colon = 2 (minor amount of residual staining, small fragments of stool and/or opaque liquid, but mucosa seen well) and Left Colon= 3 (entire mucosa seen well with no residualstaining, small fragments of stool or opaque liquid). Thetotal BBPS score equals 7. The quality of the bowel preparation was good. The bowel preparation usedwas GoLYTELY via extended prep with split dose instruction. The quality of the bowel preparationwas good. Findings: The perianal and digital rectal examinations were normal. The colon (entire examined portion) appeared normal. A few small-mouthed diverticula were found in the sigmoid colon. Internal hemorrhoids were found during retroflexion. The hemorrhoids were mild. Impression: - The entire examined colon is normal. - Diverticulosis in the sigmoid colon. - Internal hemorrhoids. - No specimens collected. Recommendation: - Observe patient's clinical course followingtoday's Colonoscopy. - Repeat colonoscopy in 5-7 years. - Resume home medications and diet. - Return to primary care physician as previously scheduled. - In the unusual situation that you developabdominal pain, bleeding or other significant problems in the days following this procedure please call my officeat [phone] to speak to my nurses. After hours and evenings please call [phone] andspeak to the GI fellow personal computer specialist. Please tell them that Dr. Hampton did your procedure and that your wereinstructed to have the fellow call me or the physiciancovering for me to discuss the management of your condition.If you have an urgent problem, [facility] and have the ER doctor call miguel ángel during the day or the GI Fellow after hours and weekends to arrange admission or transfer to our facility. Attending Participation: I personally performed the entire procedure. Electronically Signed By: Chito Hampton M.D. Chito Hampton M.D. 01/10/2023 4:21:48 PM . Number of Addenda: 0 Note Initiated On: 01/10/2023 3:46 PM Recognized by the [employer] for promoting quality in endoscopy Chito Hampton MD ENDOSCOPY PROCEDURES Final Result from Last 3 Months or Most Recently Relevant to Health Maintenance Insurance MEDICARE [facility] MEDICARE [facility] MEDICARE [facility] MEDICARE Advance Directives For more information, please contact: [phone] * Full Code (Latest Code Status on File) Date Activated Date Inactivated Comments 01/29/2024 10:18 AM 01/29/2024 4:06 PM * Full Code Date Activated Date Inactivated Comments 01/10/2023 1:28 PM 01/10/2023 9:19 PM * Full Code Date Activated Date Inactivated Comments 10/18/2021 1:40 PM 10/18/2021 8:00 PM * Full Code Date Activated Date Inactivated Comments 06/25/2021 7:35 AM 06/25/2021 1:10 PM Care Teams Power Plant Engineer Relationship Specialty Start Date End Date Aaliyah Miranda MD [address] [place] [address] PCP - General Internal Medicine 04/24/22 Aaliyah Miradna MD [address] [place] [address] Internal Medicine 04/22/22
--- OUTSIDE RECORDS SUMMARY | 2024-08-28 10:02 | XMS_ITS | Referral Summary ---
Author Organization [facility] Address [address] [place] [address] Care Team Providers Care Weather Algorithm Scientist Name Role Phone Brooklynn Lira MD Primary Care Provider + Source Comments [facility],non-owned Affiliates and Associated Physician Practices is amultiple site organization consisting of ambulatory clinics and hospital sitesin [place], [place], [place] and [place]. This disclosure is being madepursuant to the Care Everywhere program and may not contain all information available regarding this patient. Last updated 18.[facility] Allergies No known active allergies Medications * Be aware that medications may not be up to date on this document. Alwaysverify current medications with the patient. Medication Sig Dispensed Refills Start Date End Date Status OMEPRAZOLE PO Active LEVOTHYROXINE SODIUM PO Active Escitalopram Oxalate (LEXAPRO PO) Active methylPREDNISolone (MEDROL DOSEPAK) 4 MG tablet Take by mouth as directed Use dose pack of 4mg tabs, start 24 mg/day, taper by 4mg/day over 6 days per pkg instructions. Take with food. 1 Each 11/07/2018 Active Social History Tobacco Use Types Packs/Day Years Used Date Smoking Tobacco: Never Smokeless Tobacco: Never Sex and Gender Information Value Date Recorded Sex Assigned at Not on file Gender Identity Not on file Sexual Orientation Not on file Last Filed Vital Signs Vital Sign Reading Time Taken Comments Blood Pressure 130/80 11/07/2018 3:59 PM CDT Pulse 88 11/07/2018 3:59 PM CDT Temperature 36.9 C (98.4 F) 11/07/2018 3:59 PM CDT Respiratory Rate 16 11/07/2018 3:59 PM CDT Oxygen Saturation 97% 11/07/2018 3:59 PM CDT Inhaled Oxygen Concentration - - Weight 70.3 kg (155 lb) 11/07/2018 3:59 PM CDT Height 162.6 cm (5' 4 ) 11/07/2018 3:59 PM CDT Body Mass Index 26.61 11/07/2018 3:59 PM CDT Plan of Treatment Not on file Care Teams Weather Algorithm Scientist Relationship Specialty Start Date End Date Brooklynn Lira MD [address] [place] [address] PCP - General Family Medicine 11/07/18
--- OUTSIDE RECORDS SUMMARY | 2024-08-28 10:02 | XMS_ITS | Referral Summary ---
Author Organization [facility] Address [address] [place] [address] Care Team Providers Care Bank Officer Name Role Phone Aaliyah Miranda MD Unavailable Aaliyah Miranda MD Primary Care Provider [phone] Encounters Date Type Department Care Team Description 08/20/2024 3:34 PM SACK LIFTER - 08/20/2024 11:59 PM SACK LIFTER Hospital Encounter [id number] [place] [address] Discharge Disposition: Discharge to home or self care 08/20/2024 1:15 PM SACK LIFTER Office Visit [facility] Office [facility] [address] [place] [address] Jah Noguera MD Uterine prolapse (Primary Dx); Pre-op exam 08/20/2024 12:45 PM SACK LIFTER Ancillary Procedure [facility] [address] [facility] Office [address] [address] Preop examination 07/08/2024 Orders Only [facility] [address] [facility] Office [facility] [address] [address] Jah Noguera MD Preop examination (Primary Dx) 07/08/2024 Telephone [facility] [address] [facility] Office [facility] [address] [address] Danielle Fulton RN Surgery Alexander 09/07/24 12pm RLS/BSO 07/06/2024 Telephone [facility] [address] [facility] Medical Office Building [address] [place] [address] Karen Ríos Surgery Alexander from Last 3 Months Allergies No known active allergies Medications buPROPion XL (WELLBUTRIN XL) 150 mg 24 hr tablet Take 1 tablet (150 mg total) by mouth striker off before breakfast 1 Active atorvastatin (LIPITOR) 20 [...] (05/27/2022): Added automatically from request for surgery [id number] Alcohol dependence in remission (CMS/HCC) 2021 Encounter for screening colonoscopy 08/14/2021 Overview (08/14/2021): Added automatically from request for surgery [id number] Prediabetes 08/03/2021 JOHN (generalized anxiety disorder) 06/04/2021 [...] (12/29/2018): Added automatically from request for surgery [id number] BRCA2 gene mutation positive 10/23/2018 Knee pain 10/16/2017 At risk for breast cancer 06/30/2017 Atherosclerosis of coronary artery 04/26/2017 Paroxysmal atrial fibrillation (CMS/HCC) 017 Dyspnea on exertion 12/28/2016 Gene mutation 04/13/2015 Telangiectasia 02/17/2014 Interstitial lung disease (CMS/HCC) 10/27/2013 Carotid bruit 05/18/2013 Palpitations 05/18/2013 Mixed hyperlipidemia 06/21/2011 Pulmonary hypertension 06/10/2011 Systemic sclerosis 11/17/2010 Immunizations Name Administration Dates Next Due Influenza, Quadrivalent, Spl it, Intramuscular 06/17/2016,06/29/2015 Influenza, Trivalent, High D ose, Split, Preservative Free, Intramuscular 05/29/2018,04/25/2017 Influenza, Trivalent, IM (MDV) 04/29/2014 Influenza, Unspecified 04/24/2021,03/30/2020,03/2018 Pneumococcal Polysaccharide PPV23 03/30/2020 Tdap 01/24/2014 Social History Tobacco Use Types Packs/Day Years [...] on file Legal Sex Female 7:32 PM SACK LIFTER Gender Identity Not on file Sexual Orientation [...] 63.5 kg (140 lb) 08/20/2024 1:09 PM SACK LIFTER Height 162.6 cm (5' 4 ) 08/20/2024 1:09 PM SACK LIFTER Body Mass Index 24.03 08/20/2024 1:09 PM SACK LIFTER Plan of Treatment Upcoming Encounters Date Type Department Care Team (Latest Contact Info) Description 09/07/2024 12:00 PM SACK LIFTER Hospital Encounter [facility] Operating Room [address] [place] [address] [place] [address] [place] [phone] 09/07/2024 12:00 PM SACK LIFTER - 09/07/2024 3:30 PM SACK LIFTER Surgery [facility] Operating Room [address] [place] [address] [place] [address] [place] [phone] Hysterectomy with Poornima Robotic Assisted Sacralcolpopexy, Urethral Sling Insertion Scheduled Procedures Name Priority Associated Diagnoses Date/Ti me XI SACRALCOLPOPEXY - ROBOTIC ASSISTED Complete uterovaginal prolapse Stress incontinence, female 09/07/2024 12:00 PM SACK LIFTER SUPRACERVICAL HYSTERECTOMY - ROBOTIC ASSISTED Complete uterovaginal prolapse Stress incontinence, female 09/07/2024 12:00 PM SACK LIFTER Procedures Procedure Name Priority Date/Time Associated Diagnosis Comments SURGICAL PATHOLOGY Routine 08/20/2024 1: 49 PM SACK LIFTER MI ENDOMETRIAL BX W/WO ENDOCERVIX BX W/O DILAT SPX Routine 08/20/2024 1:15 PM SACK LIFTER Uterine prolapse US PELVIS COMPLETE Routine 08/20/2024 11 :56 AM SACK LIFTER Preop examination SCREENING MAMMOGRAM BILATERAL W TYRELL Schedule Routine, Read Routine (OP Routine) 02/20/2024 11:02 AM CDT BRCA2 gene mutation positive Encounter for screening mammogram for malignant neoplasm of breast COLONOSCOPY 01/10/2023 3:46 PM CDT from Last 3 Months or Most Recently Relevant to Health Maintenance Results * Surgical pathology (08/20/2024 1:49 PM SACK LIFTER) Endometrial biopsy 1:49 PM SACK LIFTER 08/20/2024 4:02 PM SACK LIFTER Narrative 08/23/2024 9:31 AM SACK LIFTER [address] [address] Tele: Sumaya Schneider MD - Target Setter Note to Patients: This report may contain [...] PATHOLOGY REPORT Patient Name: BRIANNA TYLER Address: [address] [place], [place] [id number] Gender: F : 1950 (Age: 74) Service: Location: , Hospital #: [id number] Patient Type: MBC SPECIMEN Taken: 08/20/2024 Received 08/20/2024 Reported: 08/23/2024 Physician(s): Jah Noguera M.D. DIAGNOSIS: Uterus, endometrium, biopsy: - Scant strips of inactive endometrium with ciliated metaplasia b/08/23/2024 09:31 Examining Pathologist: Linnette Quiñones M.D. Report [...] filtered and submitted entirely in cassette A1. JAP,CU MICROSCOPIC DESCRIPTION: Microscopic examination supports the above captioned diagnosis. There is no hyperplasia or malignancy. Clerical Data Follows A; [id number] REPORT IMAGES AND/OR SCANNED DOCUMENTS ONLY VIEWABLE IN PDF FORMAT The immunohistochemical test(s) cited in this report, if any, was developed and its performance characteristics determined by [facility] Pathology Department. It has not been cleared or approved by the U.S. Food and Drug Administration. The FDA has determined that such clearance or approval is not necessary. This test is used for clinical purposes. It should not be regarded as investigational or for research. [facility] Laboratory is certified under the Clinical [...] part or completely in the following laboratories: [facility], [address] [facility], [place], [place] [address] [place] [address], [address] [place] [address]. us Jah Noguera MD LAB PATHOLOGY ORDERABLES Final Result * MI ENDOMETRIAL BX W/WO ENDOCERVIX BX W/O DILAT SPX (08/20/2024 1:15 PM SACK LIFTER) Narrative Jah Noguera MD - 08/20/2024 1:15 PM SACK LIFTER Jah Noguera MD 08/20/2024 1:59 PM Endometrial Biopsy [...] * US Pelvis Complete (08/20/2024 11:56 AM SACK LIFTER) Endometrial Thickness 1.4 mm&millime ters VIEWPOINT Anatomical Region Laterality Modality Pelvis N/A Ultrasound 08/20/2024 12:0 1 PM SACK LIFTER Impressions 08/20/2024 3:44 PM SACK LIFTER Anteverted uterus, volume = 52.3 cm ; [...] compared to prior imaging studies performed at [facility] on 02/02/2019, 06/08/2021 and 12/20/2021. The [...] compared to prior imaging studies performed at [facility] on 02/02/2019, 06/08/2021 and 12/20/2021. The breasts are almost entirely fatty. There is no suspicious abnormality in either breast. Impression: There is no mammographic evidence of malignancy. Annual screening mammography is recommended. OVERALL FINAL ASSESSMENT: BI-RADS CATEGORY 1: Negative. us Cynthia Guevara NP IMG MAMMO PROCEDURES Final Result * COLONOSCOPY (01/10/2023 3:46 PM CDT) Anatomical Region Laterality Modality Other Narrative Procedure Note Chito Hampton MD - 01/10/2023 3:46 PM CDT GI ENDOSCOPY [facility] Patient Name: Brianna Tyler Procedure Date: 01/10/2023 3:46 PM Date of : 1950 Admit Type: Outpatient Age: 72 Gender: Female Attending MD: Chito Hampton M.D. Room: [facility] ENDOSCOPY ROOM 9 Note Status: Finalized Procedure: [...] The scope was passed under direct vision.The PCF [id number] endoscope was introducedthrough the anus and advanced to the cecum, identified by appendiceal orifice and ileocecal valve. The colonoscopy was performed without difficulty. The patient tolerated the procedure well. The qualityof the bowel preparation was evaluated using the BBPS (Mcallen Bowel Preparation Scale) with scores of:Right Colon [...] following this procedure please call my officeat [phone] to speak to my nurses. After hours and evenings please call [phone] andspeak to the GI fellow parts sales counterperson. Please tell them that Dr. Hampton did your procedure and that your wereinstructed to have the fellow call me or the physiciancovering for me to discuss the management of your condition.If you have an urgent problem, please go to [facility] emergency room and have the ER doctor call miguel ángel during the day or the GI Fellow after hours and weekends to arrange admission or transfer to our facility. Attending Participation: I personally performed the entire procedure. Electronically Signed By: Chito Hampton M.D. Chito Hampton M.D. 01/10/2023 4:21:48 PM . Number of Addenda: 0 Note Initiated On: 01/10/2023 3:46 PM Recognized by the [employer] for promoting quality in endoscopy Chito Hampton MD ENDOSCOPY PROCEDURES Final Result from Last 3 Months or Most Recently Relevant to Health Maintenance Insurance MEDICARE [facility] MEDICARE [facility] MEDICARE [facility] MEDICARE Advance Directives For more information, please contact: [phone] * Full Code (Latest Code Status on File) Date Activated Date Inactivated Comments 01/29/2024 10:18 AM 01/29/2024 4:06 PM * Full Code Date Activated Date Inactivated Comments 01/10/2023 1:28 PM 01/10/2023 9:19 PM * Full Code Date Activated Date Inactivated Comments 10/18/2021 1:40 PM 10/18/2021 8:00 PM * Full Code Date Activated Date Inactivated Comments 06/25/2021 7:35 AM 06/25/2021 1:10 PM Care Teams Bank Officer Relationship Specialty Start Date End Date Aaliyah Miranda MD [address] [place] [address] PCP - General Internal Medicine 04/24/22 Aaliyah Miranda MD [address] [place] [address] Internal Medicine 04/22/22
--- OUTSIDE RECORDS SUMMARY | 2024-08-28 10:02 | XMS_ITS | Patient Health Summary ---
Author Organization [facility] Address [address] [facility] [place] [address] Care Team Providers Care Manager Water Name Role Phone Brooklynn Lira MD Primary Care Provider + Note from [facility],non-owned Affiliates and Associated Physician Practices is amultiple site organization consisting of ambulatory clinics and hospital sitesin [place], [place], [place]. This disclosure is being madepursuant to the Care Everywhere program and may not contain all information available regarding this patient. Last updated 18.[facility] Allergies No known active allergies Medications * Be aware that medications may not be up to date on this document. Alwaysverify current medications with the patient. * OMEPRAZOLE PO * LEVOTHYROXINE SODIUM PO * Escitalopram Oxalate (LEXAPRO PO) * methylPREDNISolone (MEDROL DOSEPAK) 4 MG tablet(Started 11/07/2018) Take by mouth as directed Use dose pack of 4mg tabs, start 24 mg/day, taper by 4mg/day over 6 days per pkg instructions. Take with food. Social History Tobacco Use Types Packs/Day Years [...] Mass Index 26.61 11/07/2018 3:59 PM CDT Care Teams Manager Water Relationship Specialty Start Date End Date Brooklynn Lira MD [address] [facility] [address] [place] [address] PCP - General Family Medicine 11/07/18
--- OUTSIDE RECORDS SUMMARY | 2024-08-28 10:02 | XMS_ITS | Encounter Summary ---
Author Organization [facility] Address [address] [place] [address] Phone Care Team Providers Care Fiberglass Pipe Covering Supervisor Name Role Phone Aaliyah Miranda MD Unavailable Aaliyah Miranda MD Primary Care Provider [phone] Encounter Details Date Type Department Care Team (Late st Contact Info) Description 06/18/2022 Telephone [facility] Surgery [facility] 5th [place] [address] [place] [address] Jessica Escobar Social History Tobacco Use Types Packs/Day Years Used Date Smoking Tobacco: Never Smokeless Tobacco: Never AUDIT-C Answer Date Recorded Q1: How often do you have a drink containing alc ohol? Monthly or less 06/25/2021 Average Number of Drinks Not on file 021 Q3: How often do you have si x or more drinks on one occasion? Less than monthly 06/25/2021 Comments No Sex and Gender Information Value Date Recorded Sex Assigned at Not on file Legal Sex Female 7:32 PM UNEMPLOYMENT EXAMINER Gender Identity Not on file Sexual Orientation Not on file documented as of this encounter Plan of Treatment Upcoming Encounters Date Type Department Care Team (Latest Contact Info) Description 09/07/2024 12:00 PM UNEMPLOYMENT EXAMINER Hospital Encounter [facility] Operating Room [address] [place] [phone] [place] [address] [place] [address] 09/07/2024 12:00 PM UNEMPLOYMENT EXAMINER - 09/07/2024 3:30 PM UNEMPLOYMENT EXAMINER Surgery [facility] Operating Room [address] [place] [address] [place] [address] [place] [address] Hysterectomy with Poornima Robotic Assisted Sacralcolpopexy, Urethral Sling Insertion Scheduled Procedures Name Priority Associated Diagnoses Date/Ti me XI SACRALCOLPOPEXY - ROBOTIC ASSISTED Complete uterovaginal prolapse Stress incontinence, female 09/07/2024 12:00 PM UNEMPLOYMENT EXAMINER SUPRACERVICAL HYSTERECTOMY - ROBOTIC ASSISTED Complete uterovaginal prolapse Stress incontinence, female 09/07/2024 12:00 PM UNEMPLOYMENT EXAMINER documented as of this encounter Visit Diagnoses Not on filedocumented in this encounter Care Teams Fiberglass Pipe Covering Supervisor Relationship Specialty Start Date End Date Aaliyah Miranda MD [address] [place] [address] PCP - General Internal Medicine 04/24/22 Aaliyah Miranda MD [address] [place] [address] Internal Medicine 04/22/22 documented as of this encounter
--- OUTSIDE RECORDS SUMMARY | 2024-08-28 10:02 | XMS_ITS | Clinical Summary ---
Author Organization [facility] [employer] Address [address] [facility] [place] [address] Care Team Providers Care Power Crane Operator Name Role Phone Brooklynn Lira MD Primary Care Provider + Source Comments [facility] [employer],non-owned Affiliates and Associated Physician Practices is amultiple site organization consisting of ambulatory clinics and hospital sitesin [place], [place], [place] and [place]. This disclosure is being madepursuant to the Care Everywhere program and may not contain all information available regarding this patient. Last updated 18.[facility] [employer] Allergies No known active allergies Medications * [...] 11/07/2018 3:59 PM CDT Plan of Treatment Health Maintenance Due Date Last Done Comments BONE DENSITY TESTING 1950 COLOGUARD (AGES 45-75) - COL ON CA SCREENING 1950 COLON MONITORING 1950 COLONOSCOPY - COLON CA SCREENING 1950 CT COLONOGRAPHY - COLON CA SCREENING 1950 Colorectal Cancer Screening 1950 FIT - COLON CA SCREENING 1950 FLEX SIG - COLON CA SCREENING 1950 LIPID TESTING 1950 MAMMOGRAM 1950 MEDICARE AWV 12 MONTHS 1950 HEPATITIS C SCREENING 01/29/1969 DTAP/TDAP/TD VACCINES (1 - Tdap) 1970 PNEUMOCOCCAL VACCINE 50+ (1 of 1 - PCV) 2001 ZOSTER VACCINE (1 of 2) 2001 SCREENING FOR DIABETES 11/07/2018 COVID-19 VACCINE ( - 2023-2 5 season) 2024 INFLUENZA VACCINE (#1) 2024 DEPRESSION SCREENING 07/21/2024 Respiratory Syncytial Virus (RSV) Vaccine Pt: or over 60 yrs (1 - 1-dose 75+ series) 2026 HEPATITIS B VACCINE Aged Out No longe r eligible based on patient's age to complete this topic HIB VACCINE Aged Out No longer eligi ble based on patient's age to complete this topic HPV VACCINE Aged Out No longer eligi ble based on patient's age to complete this topic MENINGOCOCCAL (Group B) VACCINE Aged Out No longer eligible based on patient's age to complete this topic MENINGOCOCCAL VACCINE Aged Out No inder [place] eligible based on patient's age to complete this topic Care Teams Power Crane Operator Relationship Specialty Start Date End Date Brooklynn Lira MD [address] [place] [address] PCP - General Family Medicine 11/07/18
--- OUTSIDE RECORDS SUMMARY | 2024-08-28 10:03 | XMS_ITS | Encounter Summary ---
Author Organization [facility] Address [address] [place] [address] Phone Care Team Providers Care Horticulture Superintendent Name Role Phone Peter Calderon MD Primary Care Provider [phone] Brooklynn Lira MD Primary Care Provider Aaliyah Miranda MD Unavailable Aaliyah Miranda MD Primary Care Provider [phone] Encounter Details Date Type Department Care Team (Late st Contact Info) Description 01/09/2017 Orders Only [facility] ProviderPadmini MD [address] [place] [address] Social History Tobacco Use Types Packs/Day Years Used Date Smoking Tobacco: Never Assessed Comments Unknown Sex and Gender Information Value Date Recorded Sex Assigned at Not on file Legal Sex Female 7:32 PM BLASTING COAL MINER Gender Identity Not on file Sexual Orientation Not on file documented as of this encounter Plan of Treatment Upcoming Encounters Date Type Department Care Team (Latest Contact Info) Description 09/07/2024 12:00 PM BLASTING COAL MINER Hospital Encounter [facility] Operating Room [address] [place] [phone] [place] [address] [place] [address] 09/07/2024 12:00 PM BLASTING COAL MINER - 09/07/2024 3:30 PM BLASTING COAL MINER Surgery [facility] Operating Room [address] [place] [phone] [place] [address] [place] [address] Hysterectomy with Poornima Robotic Assisted Sacralcolpopexy, Urethral Sling Insertion Scheduled Procedures Name Priority Associated Diagnoses Date/Ti me XI SACRALCOLPOPEXY - ROBOTIC ASSISTED Complete uterovaginal prolapse Stress incontinence, female 09/07/2024 12:00 PM BLASTING COAL MINER SUPRACERVICAL HYSTERECTOMY - ROBOTIC ASSISTED Complete uterovaginal prolapse Stress incontinence, female 09/07/2024 12:00 PM BLASTING COAL MINER documented as of this encounter Procedures Procedure Name Priority Date/Time Associated Diagnosis Comments VLWU CAROTID DUPLEX SCAN COMPLETE BILATERAL 01/09/2017 12:00 AM CDT documented in this encounter Results * VLWU CAROTID DUPLEX SCAN COMPLETE BILATERAL (01/09/2017 12:00 AM CDT) Anatomical Region Laterality Modality Vascular Bilateral Ultrasound Narrative 01/09/2017 12:00 AM CDT Ordered by an unspecified provider. Historical Provider CV VASCULAR PROCEDURES Fi nal Result documented in this encounter Visit Diagnoses Not on filedocumented in this encounter Care Teams Horticulture Superintendent Relationship Specialty Start Date End Date Peter Calderon MD [address] [place] [address] PCP - General 01/09/17 12/28/18 Brooklynn Lira MD [address] [facility] [address] [place] [address] PCP - General Family Medicine 12/29/18 04/23/22 Aaliyah Miranda MD [address] [place] [address] PCP - General Internal Medicine 04/24/22 Aaliyah Miranda MD [address] [place] [address] Internal Medicine 04/22/22 documented as of this encounter
--- OUTSIDE RECORDS SUMMARY | 2024-08-28 10:03 | XMS_ITS | Clinical Summary ---
Author Organization [facility] Address [address] [place] [address] Care Team Providers Care Assistant County Attorney Name Role Phone Aaliyah Miranda MD Primary Care Provider [phone] Allergies No known active allergies Medications Cholecalciferol (VITAMIN D) 125 MCG (5000 UT) CapIndications:Vi tamin D deficiency Take 5,000 mg by mouth daily. 30 capsule 021 Active Senna 8.6 MG tabletIndications :Other constipation Take 1 tablet (8.6 mg total) by mouth as needed for Constipation. 30 tablet 1 022 Active Additional Information Patient not taking.Reported on 05/14/2024 calcium, elemental, 600 MG tabletIndications :Osteopenia of multiple sites Take 1 tablet (600 mg total) by mouth daily. 90 tablet 3 022 Active metFORMIN (GLUCOPHAGE) 500 MG tabletIndications :Prediabetes Take 1 tablet (500 mg total) by mouth daily with breakfast. 120 tablet 2 024 Active levothyroxine (SYNTHROID) 50 MCG tabletIndications :Acquired hypothyroidism Take 1 tablet (50 mcg total) by mouth daily. 90 tablet 1 024 Active atorvastatin (LIPITOR) 20 MG tabletIndications :Mixed hyperlipidemia Take 1 tablet (20 mg total) by mouth nightly at bedtime. 90 tablet 1 024 Active vitamin B-12 (CYANOCOBALAMIN) (CYANOCOBALAMIN) 1000 mcg tabletIndications :Vitamin B12 deficiency Take one tablet every other day. 90 tablet 3 024 Active escitalopram (LEXAPRO) 20 MG tabletIndications :Moderate episode of recurrent major depressive disorder ([facility]),JOHN (generalized anxiety disorder) Take 1 tablet (20 mg total) by mouth daily. 90 tablet 1 024 Active buPROPion XL (WELLBUTRIN XL) 300 MG 24 hr tabletIndications :Moderate episode of recurrent major depressive disorder ([facility]) Take 1 tablet (300 mg total) by mouth every morning. 90 tablet 1 024 Active thiamine 100 MG TabIndications:Al cohol abuse Take 1 tablet (100 mg total) by mouth daily. 100 tablet 3 024 Active folic acid (FOLVITE) 1 MG tabletIndications :Alcohol abuse Take 1 tablet (1 mg total) by mouth daily. 90 tablet 3 024 Active naltrexone (DEPADE) 50 MG tabletIndications :Alcohol abuse Take 1 tablet (50 mg total) by mouth daily. 90 tablet 3 024 Active ARIPiprazole (ABILIFY) 2 MG tabletIndications :Bipolar disorder with depression ([facility]) TAKE 1 TABLET(2 MG) BY MOUTH DAILY 90 tablet 024 Active oxybutynin XL (DITROPAN-XL) 10 MG 24 hr tabletIndications :Urine, incontinence, stress female TAKE 1 TABLET(10 MG) BY MOUTH DAILY 90 tablet 024 Active omeprazole (PRILOSEC) 40 MG capsuleIndication s:Gastroesophagea l reflux disease without esophagitis TAKE 1 CAPSULE(40 MG) BY MOUTH DAILY 90 capsule 025 Active omeprazole (PRILOSEC) 40 MG capsuleIndication s:Gastroesophagea l reflux disease without esophagitis Take 1 capsule (40 mg total) by mouth daily. 90 capsule 1 024 2024 Discontinued Active Problems Problem Noted Date Diagnosed Date Bipolar disorder with depression ([facility]) 02/02/2024 Alcohol dependence in remission ([facility] ) 10/02/2021 Prediabetes 08/03/2021 Systemic sclerosis, unspecified ([facility] ) 07/25/2021 JOHN (generalized anxiety disorder) 06/04/2021 Moderate episode of recurren t major depressive disorder ([facility]) 06/04/2021 Closed displaced fracture of right clavicle 12/20 Mixed hyperlipidemia 09/21/2020 Osteoarthritis of both knees 09/20/2020 Acquired hypothyroidism 09/20/2020 Chronic low back pain with sciatica 09/20/2020 Gastroesophageal reflux disease without esophagi tis 09/20/2020 Mixed stress and urge urinary incontinence 09/20 BRCA2 gene mutation positive 10/23/2018 Resolved Problems Problem Noted Date Diagnosed Date Resolved Date Elevated blood pressure reading 09/20/2020 01/09/2021 Esophageal dysphagia 12/29/2018 021 Fundic gland polyposis of stomach 12/29/2018 09/20/2020 Fundic gland polyps of stomach, benign 12/29/2018 09/20/2020 Overview (09/20/2020): Added automatically from request for surgery [id number] Gastroesophageal reflux dise ase with esophagitis 12/29/2018 09/20/2020 Encounters Date Type Department Care Team Description 08/05/[address] [facility] - [address] [place] [address] Aaliyah Miranda MD Follow Up Call 07/02/2024 Scan Sulmaq INFO SRVCS Scanned, Doc [facility] from Last 3 Months Immunizations Name Administration Dates Next Due Arexvy Respiratory Syncytial Virus (RSV, adjuvanted) 0.5 mL, PF 05/01/2023 FLUAD (IIV, Trivalent, 0.5 M L Pre-filled Syringe) 05/12/2024 Fluzone High Dose (IIV, triv alent, 0.5mL) 05/29/2018 Fluzone High Dose - >Age 65 (Prefilled Syringe) 05/01/2023,04/08/2022,04/24/2021,2017 Influenza (Generic) 06/17/2016,06/29/2015,2013 Influenza Adult (Generic) 03/30/2020,03/2018,06/17/2016,2014,04/29/2014 MODERNA COVID-19 (12+) MRNA, LNP-S, PF, 100 MCG/ 0.5 ML DOSE 09/01/2020 MODERNA COVID-19 (SALES INCENTIVE ANALYST MAE XAVIER), MRNA, LNP-S, PF, 50 MCG/ 0.25 ML DOSE 11/08/2021,06/08/2021 Pneumococcal (Pneumovax 23) 03/30/2020 Pneumococcal (Prevnar 13) 04/17/2022 Tdap (Generic) 01/24/2014 Family History Medical History Relation Comments Diabetes Brother Other aneurysm Father Rheumatoid Arthritis Father Hypertension Mother Lung Cancer Mother lung Diabetes Sister Relation Status Comments Brother Alive Father Mother Sister Alive Social History Tobacco Use Types Packs/Day Years Used Date Smoking Tobacco: Never Smokeless Tobacco: Never Tobacco Cessation:Counseling Given: Yes Comments:counseled by Dr Miranda Alcohol Use Standard Drinks/Week Comments Yes 1.7 (1 standard drink = 0.6 oz p ure alcohol) counseled by Dr Miranda PHQ-2 Answer Date Recorded Patient Health Questionnaire-2 Score 5 03/31/2024 Comments No Sex and Gender Information Value Date Recorded Sex Assigned at Not on file Legal Sex Female 8:34 AM REIMBURSEMENT COUNSELOR Gender Identity Not on file Sexual Orientation Not on file Last Filed Vital Signs Vital Sign Reading Time Taken Comments Blood Pressure 116/76 05/14/2024 1:03 PM CDT Pulse 64 05/14/2024 1:03 PM CDT Temperature 36.2 C (97.1 F) 05/14/2024 1:03 PM CDT Respiratory Rate 18 05/14/2024 1:03 PM CDT Oxygen Saturation 96% 05/14/2024 1:03 PM CDT Inhaled Oxygen Concentration - - Weight 67 kg (147 lb 9.6 oz) 05/14/2024 1:03 PM CDT Height 162.6 cm (5' 4 ) 05/14/2024 1:03 PM CDT Body Mass Index 25.34 05/14/2024 1:03 PM CDT Plan of Treatment Health Maintenance Due Date Last Done Comments Zoster Vaccines (1 of 2) 2001 DTaP, Tdap and Td Vaccines (2 - Td or Tdap) 01/25/2024 01/24/2014 PHQ-2 (Physician [facility]) 07/21/2024 03/31/2024 Annual Medicare Wellness Visit 05/21/2025 Postponed from 02/04/2016 (No Insurance Coverage) Mammogram Screening 02/19/2026 02/20/2024, 02/20/2024, 12/20/2021, Additional history exists Colorectal Cancer Screening Colonoscopy (10 Years) 01/10/2033 01/10/2023, 01/10/2023 Hepatitis C Completed 09/20/2020 Pneumococcal Vaccine: 65+ Years Completed 04/17/2022, 03/30/2020 Dexa Scan (General) Completed 04/29/2022, RSV Immunization or 60+ Years Completed 05/01/2023 COVID-19 Vaccine Completed 05/12/2024, 06/2023, 04/08/2022, Additional history exists Influenza Adult Completed 05/12/2024, 04/20, 04/08/2022, Additional history exists Meningococcal B Vaccine Aged Out No l onger eligible based on patient's age to complete this topic Meningococcal Vaccine Aged Out No inder madison eligible based on patient's age to complete this topic RSV Immunizations Under 20 Months Aged Out No longer eligible based on patient's age to complete this topic Procedures Procedure Name Priority Date/Time Associated Diagnosis Comments MAMMOGRAM GENERIC (SCAN ORDER) 02/20/2024 COLONOSCOPY GENERIC (SCAN ORDER) 01/10/2023 BONE DENSITY GENERIC (SCAN ORDER) 04/29/2022 HEPATITIS C ANTIBODY Routine 09/20/2020 6:28 PM REIMBURSEMENT COUNSELOR Routine general medical examination at a health care facility from Last 3 Months or Most Recently Relevant to Health Maintenance Results * MAMMOGRAM GENERIC (SCAN ORDER) (02/20/2024) Anatomical Region Laterality Modality Other 02/20/2024 [facility] Scanned SCANNING Final Resu lt * COLONOSCOPY GENERIC (01/10/2023) 01/10/2023 us [facility] Scanned SCANNING Final Resu lt * BONE DENSITY GENERIC (04/29/2022) Anatomical Region Laterality Modality Other 04/29/2022 Narrative 04/29/2022 Ordered by an unspecified provider. us Documents Scanned SCANNING Final Result * HEPATITIS C ANTIBODY (09/20/2020 6:28 PM REIMBURSEMENT COUNSELOR) HEPATITIS C AB NON-REACTI VE NON-REACT MARYANN 09/20/2020 9:36 PM REIMBURSEMENT COUNSELOR [facility] Comment: ANTIBODIES TO HCV NOT DETECTED. DOES NOT EXCLUDE THE POSSIBILITY OF EXPOSURE TO HCV. 09/20/2020 6:28 PM REIMBURSEMENT COUNSELOR Aaliyah Miranda MD LABORATORY Final Result [facility] [address] [place] [address], [id number] from Last 3 Months or Most Recently Relevant to Health Maintenance Insurance MEDICARE [facility] Care Teams Assistant County Attorney Relationship Specialty Start Date End Date Aaliyah Miranda MD [address] [place] [address] PCP - General INTERNAL MEDICINE 09/15/20
--- OUTSIDE RECORDS SUMMARY | 2024-08-28 10:03 | XMS_ITS | Encounter Summary ---
Author Organization [facility] Address [address] [place] [address] Phone Care Team Providers Care Double Needle Operator Lockstitch Name Role Phone Peter Calderon MD Primary Care Provider [phone] Brooklynn Lira MD Primary Care Provider Aaliyah Miranda MD Unavailable Aaliyah Miranda MD Primary Care Provider [phone] Encounter Details Date Type Department Care Team (Latest Contact Info) Description 01/21/2017 Orders Only [facility] CONVERSION Scanning, Provider Social History Tobacco Use Types Packs/Day Years Used Date Smoking Tobacco: Never Assessed Comments Unknown Sex and Gender Information Value Date Recorded Sex Assigned at Not on file Legal Sex Female 7:32 PM MOUNTER Gender Identity Not on file Sexual Orientation Not on file documented as of this encounter Plan of Treatment Upcoming Encounters Date Type Department Care Team (Latest Contact Info) Description 09/07/2024 12:00 PM MOUNTER Hospital Encounter [facility] Operating Room [address] [place] [phone] [place] [address] [place] [address] 09/07/2024 12:00 PM MOUNTER - 09/07/2024 3:30 PM MOUNTER Surgery [facility] Operating Room [address] [place] [phone] [place] [address] [place] [address] Hysterectomy with Poornima Robotic Assisted Sacralcolpopexy, Urethral Sling Insertion Scheduled Procedures Name Priority Associated Diagnoses Date/Ti me XI SACRALCOLPOPEXY - ROBOTIC ASSISTED Complete uterovaginal prolapse Stress incontinence, female 09/07/2024 12:00 PM MOUNTER SUPRACERVICAL HYSTERECTOMY - ROBOTIC ASSISTED Complete uterovaginal prolapse Stress incontinence, female 09/07/2024 12:00 PM MOUNTER documented as of this encounter Procedures Procedure Name Priority Date/Time Associated Diagnosis Comments STRESS TEST ONLY, EXERCISE 01/21/2017 7:02 PM CDT documented in this encounter Results * STRESS TEST ONLY, EXERCISE (01/21/2017 7:02 PM CDT) Anatomical Region Laterality Modality Other us Provider Scanning CV STRESS PROCEDURES Final Res ult documented in this encounter Visit Diagnoses Not on filedocumented in this encounter Care Teams Double Needle Operator Lockstitch Relationship Specialty Start Date End Date Peter Calderon MD [address] [place] [address] PCP - General 01/09/17 12/28/18 Brooklynn Lira MD [address] [facility] [address] [place] [address] PCP - General Family Medicine 12/29/18 04/23/22 Aaliyah Miranda MD [address] [place] [address] PCP - General Internal Medicine 04/24/22 Aaliyah Miranda MD [address] [place] [address] Internal Medicine 04/22/22 documented as of this encounter
--- OUTSIDE RECORDS SUMMARY | 2024-08-28 10:03 | XMS_ITS | Encounter Summary ---
Author Organization [facility] Address [address] [place] [address] Phone Care Team Providers Care Wood Machinist Apprentice Name Role Phone Peter Calderon MD Primary Care Provider [phone] Brooklynn Lira MD Primary Care Provider Aaliyah Miranda MD Unavailable Aaliyah Miranda MD Primary Care Provider [phone] Encounter Details Date Type Department Care Team (Latest Contact Info) Description 06/24/2017 Orders Only [facility] CONVERSION Scanning, Provider Social History Tobacco Use Types Packs/Day Years Used Date Smoking Tobacco: Never Assessed Comments Unknown Sex and Gender Information Value Date Recorded Sex Assigned at Not on file Legal Sex Female 7:32 PM DISTRIBUTION LINEMAN Gender Identity Not on file Sexual Orientation Not on file documented as of this encounter Plan of Treatment Upcoming Encounters Date Type Department Care Team (Latest Contact Info) Description 09/07/2024 12:00 PM DISTRIBUTION LINEMAN Hospital Encounter [facility] Operating Room [address] [place] [phone] [place] [address] [place] [address] 09/07/2024 12:00 PM DISTRIBUTION LINEMAN - 09/07/2024 3:30 PM DISTRIBUTION LINEMAN Surgery [facility] Operating Room [address] [place] [phone] [place] [address] [place] [address] Hysterectomy with Poornima Robotic Assisted Sacralcolpopexy, Urethral Sling Insertion Scheduled Procedures Name Priority Associated Diagnoses Date/Ti me XI SACRALCOLPOPEXY - ROBOTIC ASSISTED Complete uterovaginal prolapse Stress incontinence, female 09/07/2024 12:00 PM DISTRIBUTION LINEMAN SUPRACERVICAL HYSTERECTOMY - ROBOTIC ASSISTED Complete uterovaginal prolapse Stress incontinence, female 09/07/2024 12:00 PM DISTRIBUTION LINEMAN documented as of this encounter Procedures Procedure Name Priority Date/Time Associated Diagnosis Comments OBSTETRIC/GYNECOLOGY ULTRASONOGRAPHY REPORT 06/24/2017 9:57 AM DISTRIBUTION LINEMAN documented in this encounter Results * OBSTETRIC/GYNECOLOGY ULTRASONOGRAPHY REPORT (06/24/2017 9:57 AM DISTRIBUTION LINEMAN) Anatomical Region Laterality Modality Ultrasound us Provider Scanning IMG OB US PROCEDURES Final Res ult documented in this encounter Visit Diagnoses Not on filedocumented in this encounter Care Teams Wood Machinist Apprentice Relationship Specialty Start Date End Date Peter Calderon MD [address] [place] [address] PCP - General 01/09/17 12/28/18 Brooklynn Lira MD [address] [facility] [address] [place] [address] PCP - General Family Medicine 12/29/18 04/23/22 Aaliyah Miranda MD [address] [place] [address] PCP - General Internal Medicine 04/24/22 Aaliyah Miranda MD [address] [place] [address] Internal Medicine 04/22/22 documented as of this encounter
--- NOTE | 2024-08-28 10:20 | ED.GENADULT ---
HPI - General Adult General Chief complaint: Fall Stated complaint: fall, vision problems Time Seen by Provider: 08/28/24 10:10 History of Present Illness HPI narrative: 74-year-old female presented to the emergency department for evaluation after having a ground level fall and a head injury. Patient states she was walking in the dark and tripped over something causing her to fall backwards and strike her head. Patient denies any loss consciousness. Patient states he did have a hematoma immediately after the injury. Injury did not happen Friday night but happened on night. Patient states she was having some blurred vision so she presented emergency department for evaluation. Patient denies any associated nausea vomiting. Patient denies any focal numbness or weakness. Patient is alert appropriate time of evaluation. Related Data Home Medications ?Medication ?Instructions ?Recorded ?Confirmed ?Last Taken ?Type aspirin 81 mg tablet,delayed 81 mg PO DAILY 06/21/19 01/10/21 Unknown History release Allergies Allergy/AdvReac Type Severity Reaction Status Date / Time NKDA Allergy unknown Uncoded 08/28/24 10:06 Review of Systems Review of Systems: All systems reviewed & are unremarkable except as noted in HPI and below PMFSH Past Medical History Medical History Anxiety Arthritis Bipolar 1 disorder with moderate emma BRCA gene mutation positive Depression Dizziness Gastric polyps GERD (gastroesophageal reflux disease) Hearing loss HH (hiatus hernia) History of episiotomy History of vaginal delivery Hypothyroidism (acquired) Memory loss Rapid heartbeat Reflux esophagitis Scleroderma involving lung Scleroderma of esophagus Urinary frequency Surgical History Surgical History History of esophagogastroduodenoscopy (EGD) Social History Social History Social History: Smoking status: Never smoker Second hand tobacco smoke exposure: No Alcohol intake: current Drinks per week: 5 Substance use: never Substance use type: does not use Living arrangements: with family Occupation/Education: retired Gender identity (if verbalized by the patient): Female Sexual Orientation (if Verbalized by the Patient): Straight or Heterosexual Exam Narrative: APPEARANCE: Well appearing, no pain, no distress, well-nourished. HEAD: normocephalic, posterior scalp tenderness to palpation with no significant palpable hematoma. EYES: PERRLA/EOMI, conjunctivae clear. NOSE: Normal no drainage EARS:TMS clear with good light reflex. THROAT: Pharynx clear, no exudate. NECK: Supple. No adenopathy, no masses. RESPIRATORY: Airway patent, respirations nonlabored. Clear to auscultation bilaterally, no rales, rhonchi, wheezing. CARDIOVASCULAR: Regular rate and rhythm without murmurs rubs or gallops. ABDOMINAL: Soft, nontender, nondistended, normal bowel sounds MUSCULOSKELETAL: Moves all extremities. Strength/ROM intact, No edema, No calf tenderness. NEURO: Alert. Cranial nerves II through XII intact. Good gait. Good coordination SKIN: Warm, dry. Normal Color Course Vital Signs Vital signs: Vital Signs Temperature 98.4 F 08/28/24 10:04 Pulse Rate 77 08/28/24 10:04 Respiratory Rate 16 08/28/24 10:04 Blood Pressure 118/55 L 08/28/24 10:04 Pulse Oximetry 100 08/28/24 10:04 Temperature 97.9 F 08/28/24 12:02 Pulse Rate 64 08/28/24 12:02 Respiratory Rate 16 08/28/24 12:02 Blood Pressure 101/57 L 08/28/24 12:02 Pulse Oximetry 100 08/28/24 12:02 Medical Decision Making MDM Narrative Medical decision making narrative: 74-year-old female present to the emergency department for evaluation for a head injury. Patient had a ground level fall resulting in a posterior scalp hematoma. Hematoma has since resolved. Patient had negative imaging of the cervical spine and brain. Patient was updated results of workup. Patient was comfortable plan for discharge and close follow-up. Differential Diagnosis Differential Diagnosis: Subdural hematoma, subarachnoid hemorrhage, cervical spine fracture Vital Signs Vital Signs: Vital Signs Temperature 98.4 F 08/28/24 10:04 Pulse Rate 77 08/28/24 10:04 Respiratory Rate 16 08/28/24 10:04 Blood Pressure 118/55 L 08/28/24 10:04 Pulse Oximetry 100 08/28/24 10:04 Temperature 97.9 F 08/28/24 12:02 Pulse Rate 64 08/28/24 12:02 Respiratory Rate 16 08/28/24 12:02 Blood Pressure 101/57 L 08/28/24 12:02 Pulse Oximetry 100 08/28/24 12:02 Imaging Data Radiologist's impression: Impressions Head CT 08/28/24 10:49 IMPRESSION: 1. Moderate nonspecific cerebral white matter disease, which likely represents chronic small vessel ischemic disease. Cervical Spine CT 08/28/24 10:52 IMPRESSION: 1. No fracture. 2. Severe cervical spondylosis. Discharge Plan Discharge Clinical Impression: Head injury Patient Disposition: Home, Self-Care Condition: Stable Instructions: Antibiotic Form, Head Injury (ED) Additional Instructions: Follow the head injury guidelines. Have close follow-up with your primary care physician. If you have any worsening symptoms then please call or return to the emergency department. Patient Language: South Sudanese Prescriptions: No Action aspirin 81 mg tablet,delayed release (DR/EC) 81 mg PO DAILY levothyroxine 50 mcg tablet 50 mcg PO DAILY Qty: 90 2RF omeprazole magnesium 20 mg capsule,delayed release(DR/EC) 20 mg PO DAILY Qty: 30 2RF escitalopram oxalate 20 mg tablet 20 mg PO DAILY Qty: 90 1RF Follow-up/Referrals: Ruth,MD Aaliyah [Non-Staff] -
--- OUTSIDE RECORDS SUMMARY | 2024-08-28 10:48 | XMS_ITS | Encounter Summary ---
Author Organization [facility] Address [address] [place] [address] Phone Care Team Providers Care Human Resources Receptionist Name Role Phone Peter Calderon MD Primary Care Provider [phone] Brooklynn Lira MD Primary Care Provider Aaliyah Miranda MD Unavailable Aaliyah Miranda MD Primary Care Provider [phone] Encounter Details Date Type Department Care Team (Late st Contact Info) Description 01/09/2017 Orders Only [facility] ProviderPadmini MD [address] [place] [address] Social History Tobacco Use Types Packs/Day Years Used Date Smoking Tobacco: Never Assessed Comments Unknown Sex and Gender Information Value Date Recorded Sex Assigned at Not on file Legal Sex Female 7:32 PM LPN CMA Gender Identity Not on file Sexual Orientation Not on file documented as of this encounter Plan of Treatment Upcoming Encounters Date Type Department Care Team (Latest Contact Info) Description 09/07/2024 12:00 PM LPN CMA Hospital Encounter [facility] Operating Room [address] [place] [phone] [place] [address] [place] [address] 09/07/2024 12:00 PM LPN CMA - 09/07/2024 3:30 PM LPN CMA Surgery [facility] Operating Room [address] [place] [phone] [place] [address] [place] [address] Hysterectomy with Poornima Robotic Assisted Sacralcolpopexy, Urethral Sling Insertion Scheduled Procedures Name Priority Associated Diagnoses Date/Ti me XI SACRALCOLPOPEXY - ROBOTIC ASSISTED Complete uterovaginal prolapse Stress incontinence, female 09/07/2024 12:00 PM LPN CMA SUPRACERVICAL HYSTERECTOMY - ROBOTIC ASSISTED Complete uterovaginal prolapse Stress incontinence, female 09/07/2024 12:00 PM LPN CMA documented as of this encounter Procedures Procedure [...] on filedocumented in this encounter Care Teams Human Resources Receptionist Relationship Specialty Start Date End Date Peter Calderon MD [address] [place] [address] PCP - General 01/09/17 12/28/18 Brooklynn Lira MD [address] [facility] [address] [place] [address] PCP - General Family Medicine 12/29/18 04/23/22 Aaliyah Miranda MD [address] [place] [address] PCP - General Internal Medicine 04/24/22 Aaliyah Miranda MD [address] [place] [address] Internal Medicine 04/22/22 documented as of this encounter
--- OUTSIDE RECORDS SUMMARY | 2024-08-28 10:48 | XMS_ITS | Encounter Summary ---
Author Organization [facility] Address [address] [place] [address] Phone Care Team Providers Care Gymnastic Teacher Name Role Phone Peter Calderon MD Primary Care Provider [phone] Brooklynn Lira MD Primary Care Provider Aaliyah Miranda MD Unavailable Aaliyah Miranda MD Primary Care Provider [phone] Encounter Details Date Type Department Care Team (Latest Contact Info) Description 01/21/2017 Orders Only [facility] CONVERSION Scanning, Provider Social History Tobacco Use Types Packs/Day Years Used Date Smoking Tobacco: Never Assessed Comments Unknown Sex and Gender Information Value Date Recorded Sex Assigned at Not on file Legal Sex Female 7:32 PM GAME WARDEN Gender Identity Not on file Sexual Orientation Not on file documented as of this encounter Plan of Treatment Upcoming Encounters Date Type Department Care Team (Latest Contact Info) Description 09/07/2024 12:00 PM GAME WARDEN Hospital Encounter [facility] Operating Room [address] [place] [phone] [place] [address] [place] [address] 09/07/2024 12:00 PM GAME WARDEN - 09/07/2024 3:30 PM GAME WARDEN Surgery [facility] Operating Room [address] [place] [phone] [place] [address] [place] [address] Hysterectomy with Poornima Robotic Assisted Sacralcolpopexy, Urethral Sling Insertion Scheduled Procedures Name Priority Associated Diagnoses Date/Ti me XI SACRALCOLPOPEXY - ROBOTIC ASSISTED Complete uterovaginal prolapse Stress incontinence, female 09/07/2024 12:00 PM GAME WARDEN SUPRACERVICAL HYSTERECTOMY - ROBOTIC ASSISTED Complete uterovaginal prolapse Stress incontinence, female 09/07/2024 12:00 PM GAME WARDEN documented as of this encounter Procedures Procedure Name Priority Date/Time Associated Diagnosis Comments STRESS TEST ONLY, EXERCISE 01/21/2017 7:02 PM CDT documented in this encounter Results * STRESS TEST ONLY, EXERCISE (01/21/2017 7:02 PM CDT) Anatomical Region Laterality Modality Other us Provider Scanning CV STRESS PROCEDURES Final Res ult documented in this encounter Visit Diagnoses Not on filedocumented in this encounter Care Teams Gymnastic Teacher Relationship Specialty Start Date End Date Peter Calderon MD [address] [place] [address] PCP - General 01/09/17 12/28/18 Brooklynn Lira MD [address] [facility] [address] [place] [address] PCP - General Family Medicine 12/29/18 04/23/22 Aaliyah Miranda MD [address] [place] [address] PCP - General Internal Medicine 04/24/22 Aaliyah Miranda MD [address] [place] [address] Internal Medicine 04/22/22 documented as of this encounter
--- OUTSIDE RECORDS SUMMARY | 2024-08-28 10:48 | XMS_ITS | Referral Summary ---
Author Organization [facility] Address [address] [place] [address] Care Team Providers Care Gambling Cashier Name Role Phone Aaliyah Miranda MD Unavailable Aaliyah Miranda MD Primary Care Provider [phone] Encounters Date Type Department Care Team Description 08/20/2024 3:34 PM QUALITY PROCESS AUDITOR - 08/20/2024 11:59 PM QUALITY PROCESS AUDITOR Hospital Encounter [facility] [id number] [place] [address] Discharge Disposition: Discharge to home or self care 08/20/2024 1:15 PM QUALITY PROCESS AUDITOR Office Visit [facility] Office [facility] [address] [place] [phone] Jah Noguera MD Uterine prolapse (Primary Dx); Pre-op exam 08/20/2024 12:45 PM QUALITY PROCESS AUDITOR Ancillary Procedure [facility] [address] [facility] [address], [place] [address] Preop examination 07/08/2024 Orders Only [facility] [address] [facility] Office [facility] [address], [place] [address] Jah Noguera MD Preop examination (Primary Dx) 07/08/2024 Telephone [facility] [address] [facility] Office [facility] [address], [place] [address] Danielle [place] RN Surgery Alexander 09/07/24 12pm RLS/BSO 07/06/2024 Telephone [facility] [address] [facility] [address] [place] [address] Karen Ríos Surgery Alexander from Last 3 Months Allergies No known active allergies Medications buPROPion XL (WELLBUTRIN XL) 150 mg 24 hr tablet Take 1 tablet (150 mg total) by mouth payroll and benefits manager before breakfast 1 Active atorvastatin (LIPITOR) 20 [...] (05/27/2022): Added automatically from request for surgery [id number] Alcohol dependence in remission (CMS/HCC) 2021 Encounter for screening colonoscopy 08/14/2021 Overview (08/14/2021): Added automatically from request for surgery [id number] Prediabetes 08/03/2021 JOHN (generalized anxiety disorder) 06/04/2021 [...] (12/29/2018): Added automatically from request for surgery [id number] BRCA2 gene mutation positive 10/23/2018 Knee pain [...] on file Legal Sex Female 7:32 PM QUALITY PROCESS AUDITOR Gender Identity Not on file Sexual Orientation [...] 63.5 kg (140 lb) 08/20/2024 1:09 PM QUALITY PROCESS AUDITOR Height 162.6 cm (5' 4 ) 08/20/2024 1:09 PM QUALITY PROCESS AUDITOR Body Mass Index 24.03 08/20/2024 1:09 PM QUALITY PROCESS AUDITOR Plan of Treatment Upcoming Encounters Date Type Department Care Team (Latest Contact Info) Description 09/07/2024 12:00 PM QUALITY PROCESS AUDITOR Hospital Encounter [facility] Operating Room [address] [place] [phone] [place] [address] [place] [id number] 09/07/2024 12:00 PM QUALITY PROCESS AUDITOR - 09/07/2024 3:30 PM QUALITY PROCESS AUDITOR Surgery [facility] Operating Room [address] [place] [phone] [place] [address] [place] [id number] Hysterectomy with Poornima Robotic Assisted Sacralcolpopexy, Urethral Sling Insertion Scheduled Procedures Name Priority Associated Diagnoses Date/Ti me XI SACRALCOLPOPEXY - ROBOTIC ASSISTED Complete uterovaginal prolapse Stress incontinence, female 09/07/2024 12:00 PM QUALITY PROCESS AUDITOR SUPRACERVICAL HYSTERECTOMY - ROBOTIC ASSISTED Complete uterovaginal prolapse Stress incontinence, female 09/07/2024 12:00 PM QUALITY PROCESS AUDITOR Procedures Procedure Name Priority Date/Time Associated Diagnosis Comments SURGICAL PATHOLOGY Routine 08/20/2024 1: 49 PM QUALITY PROCESS AUDITOR GA ENDOMETRIAL BX W/WO ENDOCERVIX BX W/O DILAT SPX Routine 08/20/2024 1:15 PM QUALITY PROCESS AUDITOR Uterine prolapse US PELVIS COMPLETE Routine 08/20/2024 11 :56 AM QUALITY PROCESS AUDITOR Preop examination SCREENING MAMMOGRAM BILATERAL W TYRELL Schedule Routine, Read Routine (OP Routine) 02/20/2024 11:02 AM CDT BRCA2 gene mutation positive Encounter for screening mammogram for malignant neoplasm of breast COLONOSCOPY 01/10/2023 3:46 PM CDT from Last 3 Months or Most Recently Relevant to Health Maintenance Results * Surgical pathology (08/20/2024 1:49 PM QUALITY PROCESS AUDITOR) Endometrial biopsy 1:49 PM QUALITY PROCESS AUDITOR 08/20/2024 4:02 PM QUALITY PROCESS AUDITOR Narrative 08/23/2024 9:31 AM QUALITY PROCESS AUDITOR [address] [address] Tele: Sumaya Schneider MD - Coal Or Ore Controller Note to Patients: This report may contain [...] PATHOLOGY REPORT Patient Name: BRIANNA TYLER Address: [address] [place], [place] [id number] Gender: F : 1950 (Age: 74) Service: Location: , Hospital #: [id number] Patient Type: MBC SPECIMEN Taken: 08/20/2024 Received [...] hyperplasia or malignancy. Clerical Data Follows A; [id number] REPORT IMAGES AND/OR SCANNED DOCUMENTS ONLY VIEWABLE IN PDF FORMAT The immunohistochemical test(s) cited in this report, if any, was developed and its performance characteristics determined by [facility] Pathology Department. It has not been cleared or approved by the U.S. Food and Drug Administration. The FDA has determined that such clearance or approval is not necessary. This test is used for clinical purposes. It should not be regarded as investigational or for research. [facility] Laboratory is certified under [...] part or completely in the following laboratories: [facility], [address] [facility], [place], [place] [address] [place] [address], [address] [place] [address]. us Jah Noguera MD LAB PATHOLOGY ORDERABLES Final Result * GA ENDOMETRIAL BX W/WO ENDOCERVIX BX W/O DILAT SPX (08/20/2024 1:15 PM QUALITY PROCESS AUDITOR) Narrative Jah Noguera MD - 08/20/2024 1:15 PM QUALITY PROCESS AUDITOR Jah Noguera MD 08/20/2024 1:59 PM Endometrial [...] * US Pelvis Complete (08/20/2024 11:56 AM QUALITY PROCESS AUDITOR) Endometrial Thickness 1.4 mm&millime ters VIEWPOINT Anatomical Region Laterality Modality Pelvis N/A Ultrasound 08/20/2024 12:0 1 PM QUALITY PROCESS AUDITOR Impressions 08/20/2024 3:44 PM QUALITY PROCESS AUDITOR Anteverted uterus, volume = 52.3 cm ; [...] compared to prior imaging studies performed at [facility] on 02/02/2019, 06/08/2021 and 12/20/2021. [...] compared to prior imaging studies performed at [facility] on 02/02/2019, 06/08/2021 and 12/20/2021. [...] Female Attending MD: Chito Hampton M.D. Room: [facility] ENDOSCOPY ROOM 9 Note Status: Finalized [...] scope was passed under direct vision.The PCF [id number] endoscope was introducedthrough the anus and advanced to the cecum, identified by appendiceal orifice and ileocecal valve. The colonoscopy was performed without difficulty. The patient tolerated the procedure well. The qualityof the bowel preparation was evaluated using the BBPS (Draper Bowel Preparation Scale) with scores of:Right Colon [...] following this procedure please call my officeat [phone] to speak to my nurses. After hours and evenings please call [phone] andspeak to the GI fellow prison classification counselor. Please tell them that Dr. Hampton did your procedure and that your wereinstructed to have the fellow call me or the physiciancovering for me to discuss the management of your condition.If you have an urgent problem, [facility] and have the ER [...] On: 01/10/2023 3:46 PM Recognized by the [employer] for promoting quality in endoscopy Chito Hampton MD ENDOSCOPY PROCEDURES Final Result from Last 3 Months or Most Recently Relevant to Health Maintenance Insurance MEDICARE [facility] MEDICARE [facility] MEDICARE [facility] MEDICARE Advance Directives For more information, please contact: [phone] * Full Code (Latest Code Status on File) Date Activated Date Inactivated Comments 01/29/2024 10:18 AM 01/29/2024 4:06 PM * Full Code Date Activated Date Inactivated Comments 01/10/2023 1:28 PM 01/10/2023 9:19 PM * Full Code Date Activated Date Inactivated Comments 10/18/2021 1:40 PM 10/18/2021 8:00 PM * Full Code Date Activated Date Inactivated Comments 06/25/2021 7:35 AM 06/25/2021 1:10 PM Care Teams Gambling Cashier Relationship Specialty Start Date End Date Aaliyah Miranda MD [address] [place] [address] PCP - General Internal Medicine 04/24/22 Aaliyah Mrianda MD [address] [place] [address] Internal Medicine 04/22/22
--- OUTSIDE RECORDS SUMMARY | 2024-08-28 10:48 | XMS_ITS | Encounter Summary ---
Author Organization [facility] Address [address] [place] [address] Phone Care Team Providers Care Director Call Center Sales Name Role Phone Peter Calderon MD Primary Care Provider [phone] Brooklynn Lira MD Primary Care Provider Aaliyah Miranda MD Unavailable Aaliyah Miranda MD Primary Care Provider [phone] Encounter Details Date Type Department Care Team (Latest Contact Info) Description 06/24/2017 Orders Only [facility] CONVERSION Scanning, Provider Social History Tobacco Use Types Packs/Day Years Used Date Smoking Tobacco: Never Assessed Comments Unknown Sex and Gender Information Value Date Recorded Sex Assigned at Not on file Legal Sex Female 7:32 PM LEGAL ACTIVITY ADJUDICATOR Gender Identity Not on file Sexual Orientation Not on file documented as of this encounter Plan of Treatment Upcoming Encounters Date Type Department Care Team (Latest Contact Info) Description 09/07/2024 12:00 PM LEGAL ACTIVITY ADJUDICATOR Hospital Encounter [facility] Operating Room [address] [place] [address] [place] [address] [place] [address] 09/07/2024 12:00 PM LEGAL ACTIVITY ADJUDICATOR - 09/07/2024 3:30 PM LEGAL ACTIVITY ADJUDICATOR Surgery [facility] Operating Room [address] [place] [phone] [place] [address] [place] [address] Hysterectomy with Poornima Robotic Assisted Sacralcolpopexy, Urethral Sling Insertion Scheduled Procedures Name Priority Associated Diagnoses Date/Ti me XI SACRALCOLPOPEXY - ROBOTIC ASSISTED Complete uterovaginal prolapse Stress incontinence, female 09/07/2024 12:00 PM LEGAL ACTIVITY ADJUDICATOR SUPRACERVICAL HYSTERECTOMY - ROBOTIC ASSISTED Complete uterovaginal prolapse Stress incontinence, female 09/07/2024 12:00 PM LEGAL ACTIVITY ADJUDICATOR documented as of this encounter Procedures Procedure Name Priority Date/Time Associated Diagnosis Comments OBSTETRIC/GYNECOLOGY ULTRASONOGRAPHY REPORT 06/24/2017 9:57 AM LEGAL ACTIVITY ADJUDICATOR documented in this encounter Results * OBSTETRIC/GYNECOLOGY ULTRASONOGRAPHY REPORT (06/24/2017 9:57 AM LEGAL ACTIVITY ADJUDICATOR) Anatomical Region Laterality Modality Ultrasound us Provider Scanning IMG OB US PROCEDURES Final Res ult documented in this encounter Visit Diagnoses Not on filedocumented in this encounter Care Teams Director Call Center Sales Relationship Specialty Start Date End Date Peter Calderon MD [address] [place] [address] PCP - General 01/09/17 12/28/18 Brooklynn Lira MD [address] [facility] [address] [place] [address] PCP - General Family Medicine 12/29/18 04/23/22 Aaliyah Miranda MD [address] [place] [address] PCP - General Internal Medicine 04/24/22 Aaliyah Miranda MD [address] [place] [address] Internal Medicine 04/22/22 documented as of this encounter
--- OUTSIDE RECORDS SUMMARY | 2024-08-28 10:48 | XMS_ITS | Referral Summary ---
Author Organization [facility] Address [address] [facility] [place] [address] Care Team Providers Care Environmental Change Analyst Name Role Phone Brooklynn Lira MD Primary Care Provider + Source Comments [facility],non-owned Affiliates and Associated Physician Practices is amultiple site organization consisting of ambulatory clinics and hospital sitesin [place], [place], [place] and [place]. This disclosure is being madepursuant to the Care Everywhere program and may not contain all information available regarding this patient. Last updated 18.[facility] Allergies No known active allergies Medications * [...] of Treatment Not on file Care Teams Environmental Change Analyst Relationship Specialty Start Date End Date Brooklynn Lira MD [address] [place] [address] PCP - General Family Medicine 11/07/18
--- OUTSIDE RECORDS SUMMARY | 2024-08-28 10:48 | XMS_ITS | Patient Health Summary ---
Author Organization [facility] Address [address] [facility] [place] [address] Care Team Providers Care Field Map Technician Name Role Phone Brooklynn Lira MD Primary Care Provider + Note from [facility],non-owned Affiliates and Associated Physician Practices is amultiple site organization consisting of ambulatory clinics and hospital sitesin [place], [place], [place] and [place]. This disclosure is being madepursuant to the Care Everywhere program and may not contain all information available regarding this patient. Last updated 18.[facility] Allergies No known active allergies Medications * [...] 26.61 11/07/2018 3:59 PM CDT Care Teams Field Map Technician Relationship Specialty Start Date End Date Brooklynn Lira MD [address] [facility] [address] [place] [address] PCP - General Family Medicine 11/07/18
--- OUTSIDE RECORDS SUMMARY | 2024-08-28 10:48 | XMS_ITS | Clinical Summary ---
Author Organization [facility] al Address [address] [place] [address] Care Team Providers Care Machine Wood Sander Name Role Phone Aaliyah Miranda MD Unavailable Aaliyah Miranda MD Primary Care Provider [phone] Allergies No known active allergies Medications buPROPion XL (WELLBUTRIN XL) 150 mg 24 hr tablet Take 1 tablet (150 mg total) by mouth application development specialist before breakfast 1 Active atorvastatin (LIPITOR) 20 [...] (05/27/2022): Added automatically from request for surgery [id number] Alcohol dependence in remission ([facility]) 2021 Encounter for screening colonoscopy 08/14/2021 Overview (08/14/2021): Added automatically from request for surgery [id number] Prediabetes 08/03/2021 JOHN (generalized anxiety disorder) 06/04/2021 [...] (12/29/2018): Added automatically from request for surgery [id number] BRCA2 gene mutation positive 10/23/2018 Knee pain 10/16/2017 At risk for breast cancer 06/30/2017 Atherosclerosis of coronary artery 04/26/2017 Paroxysmal atrial fibrillation (CMS/HCC) 017 Dyspnea on exertion 12/28/2016 Gene mutation 04/13/2015 Telangiectasia 02/17/2014 Interstitial lung disease (CMS/HCC) 10/27/2013 Carotid bruit 05/18/2013 Palpitations 05/18/2013 Mixed hyperlipidemia 06/21/2011 Pulmonary hypertension 06/10/2011 Systemic sclerosis 11/17/2010 Encounters Date Type Department Care Team Description 08/20/2024 3:34 PM LADLE LINER HELPER - 08/20/2024 11:59 PM LADLE LINER HELPER Hospital Encounter [address] [address] Discharge Disposition: Discharge to home or self care 08/20/2024 1:15 PM LADLE LINER HELPER Office Visit [facility] [address] [facility] [address] [place] [address] Jah Noguera MD Uterine prolapse (Primary Dx); Pre-op exam 08/20/2024 12:45 PM LADLE LINER HELPER Ancillary Procedure [facility] [address] [facility] [address] [place] [address] Preop examination 07/08/2024 Orders Only [facility] [address] [facility] [address], [place] [address] Jah Noguera MD Preop examination (Primary Dx) 07/08/2024 Telephone [facility] [address] [facility] [address] [place] [address] Danielle Fulton, machine operator farmworker Alexander 09/07/24 12pm RLSH/BSO 07/06/2024 Telephone [facility] [address] [facility] [address] [place] [address] Karen Ríos Surgery Alexander from [...] on file Legal Sex Female 7:32 PM LADLE LINER HELPER Gender Identity Not on file Sexual Orientation [...] 63.5 kg (140 lb) 08/20/2024 1:09 PM LADLE LINER HELPER Height 162.6 cm (5' 4 ) 08/20/2024 1:09 PM LADLE LINER HELPER Body Mass Index 24.03 08/20/2024 1:09 PM LADLE LINER HELPER Plan of Treatment Upcoming Encounters Date Type Department Care Team (Latest Contact Info) Description 09/07/2024 12:00 PM LADLE LINER HELPER Hospital Encounter [facility] Operating Room [address] [place] [address] [place] [address] [place] [address] 09/07/2024 12:00 PM LADLE LINER HELPER - 09/07/2024 3:30 PM LADLE LINER HELPER Surgery [facility] Operating Room [address] [place] [id number] [place] [address] [place] [address] Hysterectomy with Poornima Robotic Assisted Sacralcolpopexy, Urethral Sling Insertion Scheduled Procedures Name Priority Associated Diagnoses Date/Ti me XI SACRALCOLPOPEXY - ROBOTIC ASSISTED Complete uterovaginal prolapse Stress incontinence, female 09/07/2024 12:00 PM LADLE LINER HELPER SUPRACERVICAL HYSTERECTOMY - ROBOTIC ASSISTED Complete uterovaginal prolapse Stress incontinence, female 09/07/2024 12:00 PM LADLE LINER HELPER Health Maintenance Due Date Last Done Comments [...] SURGICAL PATHOLOGY Routine 08/20/2024 1: 49 PM LADLE LINER HELPER PA ENDOMETRIAL BX W/WO ENDOCERVIX BX W/O DILAT SPX Routine 08/20/2024 1:15 PM LADLE LINER HELPER Uterine prolapse US PELVIS COMPLETE Routine 08/20/2024 11 :56 AM LADLE LINER HELPER Preop examination SCREENING MAMMOGRAM BILATERAL W TYRELL Schedule Routine, Read Routine (OP Routine) 02/20/2024 11:02 AM CDT BRCA2 gene mutation positive Encounter for screening mammogram for malignant neoplasm of breast COLONOSCOPY 01/10/2023 3:46 PM CDT from Last 3 Months or Most Recently Relevant to Health Maintenance Results * Surgical pathology (08/20/2024 1:49 PM LADLE LINER HELPER) Endometrial biopsy 1:49 PM LADLE LINER HELPER 08/20/2024 4:02 PM LADLE LINER HELPER Narrative 08/23/2024 9:31 AM LADLE LINER HELPER [address] [address] Tele: Sumaya Schneider MD - Security Attendant Note to Patients: This report may contain [...] PATHOLOGY REPORT Patient Name: BRIANNA TYLER Address: [address] [place], [place] [id number] Gender: F : 1950 (Age: 74) Service: Location: , [facility] #: [id number] Patient Type: [facility] SPECIMEN Taken: 08/20/2024 Received 08/20/2024 Reported: 08/23/2024 Physician(s): Jah Noguera M.D. DIAGNOSIS: Uterus, endometrium, biopsy: - Scant strips of inactive endometrium with ciliated metaplasia [facility]/08/23/2024 09:31 Examining Pathologist: Linnette Quiñones M.D. [...] filtered and submitted entirely in cassette A1. J[facility] MICROSCOPIC DESCRIPTION: Microscopic examination supports the above captioned diagnosis. There is no hyperplasia or malignancy. Clerical Data Follows A; [id number] REPORT IMAGES AND/OR SCANNED DOCUMENTS ONLY VIEWABLE IN PDF FORMAT The immunohistochemical test(s) cited in this report, if any, was developed and its performance characteristics determined by [facility] Pathology Department. It has not been cleared or approved by the U.S. Food and Drug Administration. The FDA has determined that such clearance or approval is not necessary. This test is used for clinical purposes. It should not be regarded as investigational or for research. [facility] Laboratory is certified under the Clinical Laboratory [...] part or completely in the following laboratories: [facility], [facility] [facility], [place], [place] [address] [place] [id number]. Jah Noguera MD LAB PATHOLOGY ORDERABLES Final Result * PA ENDOMETRIAL BX W/WO ENDOCERVIX BX W/O DILAT SPX (08/20/2024 1:15 PM LADLE LINER HELPER) Narrative Jah Noguera MD - 08/20/2024 1:15 PM LADLE LINER HELPER Jah Noguera MD 08/20/2024 1:59 PM Endometrial [...] * US Pelvis Complete (08/20/2024 11:56 AM LADLE LINER HELPER) Endometrial Thickness 1.4 mm&millime ters VIEWPOINT Anatomical Region Laterality Modality Pelvis N/A Ultrasound 08/20/2024 12:0 1 PM LADLE LINER HELPER Impressions 08/20/2024 3:44 PM LADLE LINER HELPER Anteverted uterus, volume = 52.3 cm ; [...] compared to prior imaging studies performed at [facility] on 02/02/2019, 06/08/2021 and 12/20/2021. The breasts [...] compared to prior imaging studies performed at [facility] on 02/02/2019, 06/08/2021 and 12/20/2021. The breasts [...] Female Attending MD: Chito Hampton M.D. Room: [facility] ENDOSCOPY ROOM 9 Note Status: Finalized Procedure: [...] scope was passed under direct vision.The [facility] [id number] endoscope was introducedthrough the anus and advanced to the cecum, identified by appendiceal orifice and ileocecal valve. The colonoscopy was performed without difficulty. The patient tolerated the procedure well. The qualityof the bowel preparation was evaluated using the BBPS ([place] Bowel Preparation Scale) with scores of:Right Colon [...] following this procedure please call my officeat [phone]) to speak to my nurses. After hours and evenings please call [phone] andspeak to the GI fellow drafter (cad) electronic. Please tell them that Dr. Hampton did your procedure and that your wereinstructed to have the fellow call me or the physiciancovering for me to discuss the management of your condition.If you have an urgent problem, [facility] and [facility] [...] On: 01/10/2023 3:46 PM Recognized by the [place] for promoting quality in endoscopy Chito Hampton MD ENDOSCOPY PROCEDURES Final Result from Last 3 Months or Most Recently Relevant to Health Maintenance Insurance MEDICARE [facility] MEDICARE [facility] MEDICARE [facility] MEDICARE Advance Directives For more information, please contact: [phone] * Full Code (Latest Code Status on File) Date Activated Date Inactivated Comments 01/29/2024 10:18 AM 01/29/2024 4:06 PM * Full Code Date Activated Date Inactivated Comments 01/10/2023 1:28 PM 01/10/2023 9:19 PM * Full Code Date Activated Date Inactivated Comments 10/18/2021 1:40 PM 10/18/2021 8:00 PM * Full Code Date Activated Date Inactivated Comments 06/25/2021 7:35 AM 06/25/2021 1:10 PM Care Teams Machine Wood Sander Relationship Specialty Start Date End Date Aaliyah Miranda MD [address] [place] [address] PCP - General Internal Medicine 04/24/22 Aaliyah Miranda MD [address] [place] [address] Internal Medicine 04/22/22
--- OUTSIDE RECORDS SUMMARY | 2024-08-28 10:48 | XMS_ITS | Encounter Summary ---
Author Organization [facility] Address [address] [place] [address] Phone Care Team Providers Care Electric Mule Operator Name Role Phone Aaliyah Miranda MD Unavailable Aaliyah Miranda MD Primary Care Provider [phone] Encounter Details Date Type Department Care Team (Late st Contact Info) Description 06/18/2022 Telephone [facility] 5th [place] [address] [place] [address] Jessica Escobar Social History Tobacco [...] on file Legal Sex Female 7:32 PM SLURRY MIXER Gender Identity Not on file Sexual Orientation Not on file documented as of this encounter Plan of Treatment Upcoming Encounters Date Type Department Care Team (Latest Contact Info) Description 09/07/2024 12:00 PM SLURRY MIXER Hospital Encounter [facility] Operating Room [address] [place] [phone] [place] [address] [place] [address] 09/07/2024 12:00 PM SLURRY MIXER - 09/07/2024 3:30 PM SLURRY MIXER Surgery [facility] Operating Room [address] [place] [address] [place] [address] [place] [address] Hysterectomy with Poornima Robotic Assisted Sacralcolpopexy, Urethral Sling Insertion Scheduled Procedures Name Priority Associated Diagnoses Date/Ti me XI SACRALCOLPOPEXY - ROBOTIC ASSISTED Complete uterovaginal prolapse Stress incontinence, female 09/07/2024 12:00 PM SLURRY MIXER SUPRACERVICAL HYSTERECTOMY - ROBOTIC ASSISTED Complete uterovaginal prolapse Stress incontinence, female 09/07/2024 12:00 PM SLURRY MIXER documented as of this encounter Visit Diagnoses Not on filedocumented in this encounter Care Teams Electric Mule Operator Relationship Specialty Start Date End Date Aaliyah Miranda MD [address] [place] [address] PCP - General Internal Medicine 04/24/22 Aaliyah Miranda MD [address] [place] [address] Internal Medicine 04/22/22 documented as of this encounter
--- OUTSIDE RECORDS SUMMARY | 2024-08-28 10:49 | XMS_ITS | Clinical Summary ---
Author Organization [facility] Address [address] [facility] [place] [address] Care Team Providers Care Police Patrol Lieutenant Name Role Phone Brooklynn Lira MD Primary Care Provider + Source Comments [facility],non-owned Affiliates and Associated Physician Practices is amultiple site organization consisting of ambulatory clinics and hospital sitesin [place], [place], [place] and [place]. This disclosure is being madepursuant to the Care Everywhere program and may not contain all information available regarding this patient. Last updated 18.[facility] Allergies No known active allergies Medications * [...] age to complete this topic Care Teams Police Patrol Lieutenant Relationship Specialty Start Date End Date Brooklynn Lira MD [address] [place] [address] PCP - General Family Medicine 11/07/18
== END 2024-08-28 12:07 | disposition home or self-care (01) ==
PROVIDERS: Emergency Provider Emergency Medicine; PCP Emergency Medicine
DX: S09.90XA Unspecified injury of head, initial encounter (principal); E03.9 Hypothyroidism, unspecified; K44.9 Diaphragmatic hernia without obstruction or gangrene; K21.00 Gastro-esophageal reflux disease with esophagitis, without bleeding; M34.81 Systemic sclerosis with lung involvement; M34.89 Other systemic sclerosis; F31.9 Bipolar disorder, unspecified; F41.9 Anxiety disorder, unspecified; Z79.82 Long term (current) use of aspirin; Z79.899 Other long term (current) drug therapy; W18.09XA Striking against other object with subsequent fall, initial encounter; M47.812 Spondylosis without myelopathy or radiculopathy, cervical region; R90.82 White matter disease, unspecified
CPT/HCPCS: 70450; 72125; 99284

== ENCOUNTER 2025-05-10 14:47 | Outpatient (CLI) | payer MEDICARE, SELFPAY ==
--- NOTE | ~2025-05-10 | DEXA_ITS ---
Bone Density Report Name: FRANKIE TYLER Age: 75 Sex: Female Ethnicity: White Date of : 1950 Indication: osteopenia; height loss; prior fracture; hysterectomy; Referring Provider: RuthAaliyah Study: Bone densitometry was performed. Exam Date: May 10, 2025 Accession number: [id number] Bone Density: Region BMD T-score Z-score Classification AP Spine(L1-L4) 0.823 -2.0 0.3 Osteopenia Femoral Neck (Left) 0.551 -2.7 -0.6 Osteoporosis Total Hip (Left) 0.640 -2.5 -0.7 Osteoporosis Femoral Neck (Right) 0.551 -2.7 -0.6 Osteoporosis Total Hip (Right) 0.641 -2.5 -0.7 Osteoporosis Total Hip Mean 0.641 -2.5 -0.7 Osteoporosis World Health Organization criteria for BMD impression classify patients as: Normal (T-score at or above -1.0), Osteopenia (T-score between -1.0 and -2.5), or Osteoporosis (T-score at or below -2.5). 10-year Fracture Risk: FRAX not reported because: Some T-score for Spine Total or Hip Total or Femoral Neck at or below -2.5 Previous Exams: -- Region Exam Age BMD T-score BMD Change BMD Change Date g/cm2 vs Baseline vs Previous -- AP Spine (L1-L4) 05/10/2025 75 0.823 -2.0 -4.4%* -4.4%* 04/29/2022 72 0.860 -1.7 Total Hip(Left) 05/10/2025 75 0.640 -2.5 -17.7%* -17.7%* 04/29/2022 72 0.779 -1.3 Total Hip(Right) 05/10/2025 75 0.641 -2.5 -12.0%* -12.0%* 04/29/2022 72 0.728 -1.8 -- *Denotes significance at 95% confidence level, LSC for AP Spine = 0.022 g/cm2, LSC for Total Hip = 0.027 g/cm2 Clinical Information Provided by Patient: Has had a low trauma fracture Has used the following medications: Vitamin D Has the following medical conditions: Hysterectomy Patient maximum height was 64 Menopause Age: 50 No regular weight bearing exercise Drinks caffeinated beverages Onset of menses at age 14 Number of children 2 Impression: The patient has established osteoporosis, based on the Left Femoral Neck T-score and the existence of a prior fracture. The patient has risk factors, including: previous fracture. The BMD for the AP Spine (L1-L4) decreased, changing by -4.4% since the last DXA exam. The BMD for the Total Hip(Left) decreased, changing by -17.7% since the last DXA exam. The BMD for the Total Hip(Right) decreased, changing by -12.0% since the last DXA exam. Discussion: HIGH RISK OF FRACTURE. BONE DENSITY IS UNDESIRABLY LOW AT ONE OR MORE SKELETAL SITES, CONSISTENT WITH POSTMENOPAUSAL OSTEOPOROSIS. This patient's lowest T-score, in a patient who has previously fractured, meets the World Health Organization's (WHO) criteria for severe osteoporosis. In untreated patients, the risk of osteoporotic fracture increases approximately two-fold for each 1.0 SD decrease in T-score. Low bone density is not the only risk factor for fracture; also consider factors such as patient's age, frailty or poor health, risk of falling, risk of injury, previous osteoporotic fracture, family history of osteoporosis, cigarette smoking, low body weight, etc. Not everyone with low bone mineral density has osteoporosis; osteomalacia and other metabolic bone disorders should also be considered. Patients who have osteoporosis should be evaluated for specific diseases and conditions (secondary causes) that may cause or contribute to bone loss. The [place] [employer] Clinical Endocrinologists (AACE) and National Osteoporosis Foundation (NOF) recommend pharmacologic intervention for all postmenopausal women whose T-score is in this range. The patient should follow a healthful lifestyle (good nutrition with adequate calcium and vitamin D, and appropriate weight-bearing exercise). Follow-Up: Consider a repeat BMD and Vertebral Fracture Assessment (VFA) exam in 2 years or sooner if medically necessary, to reassess this patient's status. Reported by: DEBBIE on 05/10/2025 3:39:00 PM. Reviewed, dictated and finalized at location A.
== END 2025-05-10 14:48 | disposition home or self-care (01) ==
LOC: MICIMG 14:49
PROVIDERS: PCP Internal Medicine; Visit Provider Internal Medicine
DX: M81.0 Age-related osteoporosis without current pathological fracture (principal); M85.88 Other specified disorders of bone density and structure, other site; Z78.0 Asymptomatic menopausal state
CPT/HCPCS: 77080